=== PATIENT | female | born 1980 | race Caucasian/White ===

== ENCOUNTER 2020-03-13 15:33 | Outpatient (REF) | payer OTHER, SELFPAY ==
[2020-03-13 16:13] LABS: COVID-19 Test Negative (Negative)
== END 2020-03-13 15:34 | disposition home or self-care (01) ==
LOC: HO.LAB 15:33
PROVIDERS: PCP Internal Medicine; Visit Provider Internal Medicine
DX: Z20.828 Contact with and (suspected) exposure to other viral communicable diseases (principal)
CPT/HCPCS: 36415

== ENCOUNTER 2020-06-05 09:34 | Outpatient (REF) | payer OTHER, SELFPAY ==
[2020-06-05 09:54] LABS: COVID-19 Test Negative (Negative)
== END 2020-06-05 09:35 | disposition home or self-care (01) ==
LOC: HO.EMPCOV 09:34
PROVIDERS: PCP Internal Medicine; Visit Provider Internal Medicine
DX: Z20.828 Contact with and (suspected) exposure to other viral communicable diseases (principal)
CPT/HCPCS: 87635; C9803

== ENCOUNTER 2020-06-16 16:37 | Outpatient (REF) | payer OTHER, SELFPAY ==
--- NOTE | 2020-06-16 16:45 | XR_ITS ---
EXAMINATION: XR FOREARM, LEFT CLINICAL INFORMATION: Pain left arm. COMPARISON: None TECHNIQUE: AP and lateral views of the left forearm were obtained. FINDINGS: The bones and soft tissues are normal. No fracture. Imaged portions of the elbow and wrist are unremarkable. XR/XR forearm LT 2V IMPRESSION: Unremarkable left forearm exam.
== END 2020-06-16 16:38 | disposition home or self-care (01) ==
LOC: HO.XRAY 16:37
PROVIDERS: PCP Internal Medicine; Visit Provider Nurse Practitioner Family
DX: M79.602 Pain in left arm (principal)
CPT/HCPCS: 73090

== ENCOUNTER 2020-09-05 09:29 | Outpatient (REF) | payer OTHER, SELFPAY ==
[2020-09-05 09:51] LABS: COVID-19 Test Negative (Negative); IDNOW Serial# 55D5AD1C
== END 2020-09-05 09:30 | disposition home or self-care (01) ==
LOC: HO.EMPCOV 09:29
PROVIDERS: Visit Provider Internal Medicine
DX: Z20.822 Contact with and (suspected) exposure to COVID-19 (principal)
CPT/HCPCS: 36415; 87635; C9803

== ENCOUNTER 2020-09-06 07:28 | Outpatient (REF) | payer OTHER, SELFPAY ==
[2020-09-06 08:45] LABS: MANUAL DIFF FLAG NO
[2020-09-06 08:52] LABS: Basophils Percent Auto 0.4 % (0-2); Eosinophils Absolute Auto 0.1 X10*3/uL (0.0-0.4); Eosinophils Percent Auto 1.3 % (0-4); Hematocrit 42.9 % (37-47); Hemoglobin 14.2 g/dl (12.0-16.0); Imm Gran Abs Auto 0.02 X10*3/uL (0.00-0.03); Imm Gran Pct Auto 0.3 % (0.0-0.4); Lymphocytes Absolute Auto 1.7 X10*3/uL (1.2-4.9); Lymphocytes Percent Auto 25.6 % (20-40); Mean Corpuscular HGB Conc 33.1 g/dl (31.0-35.0); Mean Corpuscular Hemoglobin 30.3 pg (27.0-33.0); Mean Corpuscular Volume 91.7 fL (80-98); Mean Platelet Volume 10.3 fL (9.4-12.3); Monocytes Absolute Auto 0.4 X10*3/uL (0.1-1.2); Monocytes Percent Auto 5.2 % (2-11); Neutrophils Absolute Auto 4.5 X10*3/uL (2.0-8.3); Neutrophils Percent Auto 67.2 % (45-73); Platelet Count 332 X10*3/uL (160-400); Red Blood Count 4.68 X10*6/uL (4.20-5.50); Red Cell Distribution Width 13.6 % (11.0-16.0); White Blood Count 6.8 X10*3/uL (4.8-10.8)
[2020-09-06 09:05] LABS: Anion Gap 13 (12-20); Blood Urea Nitrogen 14 mg/dL (9-16); Calcium 8.7 mg/dL (8.4-10.2); Carbon Dioxide 20 mmol/L (22-29); Chloride 111 mmol/L (96-108); Cholesterol 160 mg/dL; Estimated Glomerular Filt Rate > 60; Glucose Fasting 97 mg/dL (60-99); HDL Cholesterol 41 mg/dL; LDL Cholesterol Calculated 101 mg/dl; Potassium 4.5 mmol/L (3.3-5.1); Rheumatoid Factor < 15.0 IU/mL (<15.0); Sodium 139 mmol/L (135-145); Triglycerides 91 mg/dL
[2020-09-06 09:29] LABS: TSH reflex Free T4 1.75 uIU/mL (0.32-4.0)
== END 2020-09-06 07:29 | disposition home or self-care (01) ==
LOC: HO.LAB 07:28
PROVIDERS: PCP Internal Medicine; Visit Provider Nurse Practitioner Family
DX: M79.602 Pain in left arm (principal); Z83.49 Family history of other endocrine, nutritional and metabolic diseases
CPT/HCPCS: 36415; 80048; 80061; 84443; 85025; 86431

== ENCOUNTER → 2020-10-10 13:57 | Outpatient (BNVA) | payer OTHER, SELFPAY | PROVIDERS: PCP Internal Medicine; Visit Provider Nurse Practitioner Family ==

== ENCOUNTER 2020-10-27 14:18 | Outpatient (REF) | payer OTHER, SELFPAY ==
--- NOTE | ~2020-10-27 | MR_ITS ---
EXAMINATION: MRI LEFT FOREARM CLINICAL INFORMATION: Pain left forearm. Patient reports pain mostly proximal with certain movements. Symptoms since March 2020. No injury. COMPARISON: X-ray left forearm 06/16/2020. TECHNIQUE: Imaging of the left forearm in a high-field magnet without contrast. Large [id number] study. FINDINGS: There is artifactual signal projected over the forearm on the axial T2 short axis sequences. This limits evaluation. BONE/JOINTS: No acute fracture is seen. No evidence of significant edema to suggest stress reaction or bone contusion is identified in the radius or ulna. Limited incomplete evaluation of the imaged portion of the elbow, without abnormal edema identified. MUSCLES/TENDONS: There is mild diffuse intermediate T2 signal in the muscles, which may be artifactual in the provided sequences. No focal muscle tear is seen. Visualized tendons appear intact. No focal fluid collection or discrete mass lesion is identified in this noncontrast study. MR/MR forearm LT wo con IMPRESSION: 1. No evidence of acute osseous abnormality. 2. There is artifactual signal on the axial T2 fat-sat sequence. Mild intermediate T2 signal diffusely in the muscles of the forearm. This may be artifactual in nature. If there is concern for diffuse muscle edema from etiology such as myositis, repeat MRI can be obtained for evaluation. 3. No evidence of muscle tear. Visualized tendons appear intact.
== END 2020-10-27 14:19 | disposition home or self-care (01) ==
LOC: HO.MRI 14:18
PROVIDERS: Visit Provider Internal Medicine
DX: M79.632 Pain in left forearm (principal)
CPT/HCPCS: 73218

== ENCOUNTER 2020-12-15 12:40 | Outpatient (REF) | payer OTHER, SELFPAY ==
[2020-12-15 13:56] LABS: MANUAL DIFF FLAG NO
[2020-12-15 14:08] LABS: Basophils Percent Auto 0.3 % (0-2); Eosinophils Absolute Auto 0.1 X10*3/uL (0.0-0.4); Eosinophils Percent Auto 1.2 % (0-4); Hematocrit 43.7 % (37-47); Hemoglobin 14.6 g/dl (12.0-16.0); Imm Gran Abs Auto 0.02 X10*3/uL (0.00-0.03); Imm Gran Pct Auto 0.3 % (0.0-0.4); Mean Corpuscular HGB Conc 33.4 g/dl (31.0-35.0); Mean Corpuscular Hemoglobin 30.4 pg (27.0-33.0); Mean Corpuscular Volume 90.9 fL (80-98); Mean Platelet Volume 10.1 fL (9.4-12.3); Monocytes Absolute Auto 0.3 X10*3/uL (0.1-1.2); Monocytes Percent Auto 4.7 % (2-11); Neutrophils Absolute Auto 4.4 X10*3/uL (2.0-8.3); Neutrophils Percent Auto 64.5 % (45-73); Platelet Count 312 X10*3/uL (160-400); Red Blood Count 4.81 X10*6/uL (4.20-5.50); Red Cell Distribution Width 13.2 % (11.0-16.0); White Blood Count 6.8 X10*3/uL (4.8-10.8)
[2020-12-15 14:24] LABS: Alanine Aminotransferase 17 U/L (0-31); Albumin Level 4.6 g/dL (3.5-5.0); Alkaline Phosphatase 50 U/L (39-117); Anion Gap 15 (12-20); Aspartate Amino Transferase 17 U/L (5-31); Bilirubin Total 0.9 mg/dL (0.0-1.0); Blood Urea Nitrogen 14 mg/dL (9-16); C Reactive Protein 0.19 mg/dL (< or = 0.50); Calcium 9.5 mg/dL (8.4-10.2); Carbon Dioxide 19 mmol/L (22-29); Chloride 109 mmol/L (96-108); Estimated Glomerular Filt Rate > 60; Glucose Random 85 mg/dL (60-115); Lactate Dehydrogenase 127 U/L (122-220); Potassium 4.1 mmol/L (3.3-5.1); Sodium 139 mmol/L (135-145); Total Protein 7.5 g/dL (6.5-8.0)
[2020-12-15 15:13] LABS: Erythrocyte Sedimentation Rate 8 MM/HR (0-20)
[2020-12-18 14:51] LABS: Anti Nuclear Antibody Pattern Nuclear, Speckled; Anti Nuclear Antibody Screen POSITIVE (NEGATIVE); Anti Nuclear Antibody Titer 1:40 titer
[2020-12-19 22:47] LABS: Aldolase 4.7 U/L (<=8.1)
[2020-12-24 23:31] LABS: EJ Autoantibodies NOT DETECTED (NOT DETECTED); JO-1 Antibody <1.0 NEG AI (<1.0 NEG); MI 2 Autoantibodies NOT DETECTED (NOT DETECTED); OJ Autoantibodies NOT DETECTED (NOT DETECTED); PL 12 Autoantibodies NOT DETECTED (NOT DETECTED); PL 7 Autoantibodies NOT DETECTED (NOT DETECTED)
== END 2020-12-15 12:41 | disposition home or self-care (01) ==
LOC: HO.LAB 12:40
PROVIDERS: PCP Internal Medicine; Visit Provider Student in an Organized Health Care Education/Training Program
DX: M79.632 Pain in left forearm (principal)
CPT/HCPCS: 36415; 80053; 82085; 82550; 83615; 85025; 85652; 86038; 86039; 86140

== ENCOUNTER 2020-12-27 16:35 | Outpatient (REF) | payer OTHER, SELFPAY ==
--- NOTE | ~2020-12-27 | MR_ITS ---
EXAMINATION: MR FOREARM LEFT WITHOUT AND WITH CONTRAST CLINICAL INFORMATION: Left forearm pain and tingling. COMPARISON: Left forearm MRI dated 10/27/2020 and left forearm radiograph dated 06/16/2020. TECHNIQUE: Multisequence MR imaging of the left forearm was obtained before and after the administration of 8 mL Gadavist IV contrast on a high-field strength scanner. FINDINGS: BONE: No evidence of acute osseous injury. No abnormal marrow signal or enhancement. MUSCLES/TENDONS: The visualized muscles and tendons are intact. No muscle edema or measurable defect. LIGAMENTS: The intra-articular ligaments are poorly evaluated on large [id number]-[id number] images. SOFT TISSUES: No abnormal soft tissue mass or fluid collection. No abnormal soft tissue enhancement. MR/MR forearm LT wo/w con IMPRESSION: Unremarkable examination.
== END 2020-12-27 16:36 | disposition home or self-care (01) ==
LOC: HO.MRI 16:35
PROVIDERS: Visit Provider Student in an Organized Health Care Education/Training Program
DX: M79.632 Pain in left forearm (principal)
CPT/HCPCS: 73220

== ENCOUNTER → 2021-01-03 10:41 | Outpatient (BNVA) | payer OTHER, SELFPAY | PROVIDERS: PCP Internal Medicine; Visit Provider Student in an Organized Health Care Education/Training Program ==

== ENCOUNTER 2021-01-25 12:56 | Outpatient (REF) | payer OTHER, SELFPAY ==
--- NOTE | ~2021-01-25 | US_ITS ---
EXAMINATION: US VENOUS WITH DOPPLER UPPER EXTREMITY, LEFT CLINICAL INFORMATION: Pain left forearm. COMPARISON: None TECHNIQUE: Ultrasound of the upper extremity is performed using compression sonography and color and pulse Doppler flow with assessment of augmentation of flow. There is also imaging and Doppler assessment of the jugular and subclavian veins. Spectral analysis with color-flow imaging is performed. FINDINGS: Respiratory variation, normal compression, and augmented flow are noted throughout the upper extremity including the axillary, brachial, cubital, and radial and ulnar veins. There is normal flow in the internal jugular and subclavian veins. There is no visible deep or superficial thrombophlebitis. If the patient's symptoms progress, a followup ultrasound in 5 -7 days might be of value to exclude proximal propagation from a nonvisualized distal arm vein. US/US venous duplex UE LT IMPRESSION: No DVT demonstrated in the left upper extremity.
== END 2021-01-25 12:57 | disposition home or self-care (01) ==
LOC: HO.US 12:56
PROVIDERS: PCP Internal Medicine; Visit Provider Anesthesiology
DX: M79.632 Pain in left forearm (principal); M79.89 Other specified soft tissue disorders; R23.8 Other skin changes
CPT/HCPCS: 93971

== ENCOUNTER 2021-02-05 08:14 | Outpatient (REF) | payer OTHER, SELFPAY ==
[2021-02-07 13:30] LABS: HPV mRNA E6/E7 rflx Not Detected (Not Detected)
== END 2021-02-05 08:15 | disposition home or self-care (01) ==
LOC: HO.LAB 08:14
PROVIDERS: PCP Internal Medicine; Visit Provider Advanced Practice Midwife
DX: Z01.419 Encounter for gynecological examination (general) (routine) without abnormal findings (principal); Z11.51 Encounter for screening for human papillomavirus (HPV)
CPT/HCPCS: 87624; 88142

== ENCOUNTER 2021-07-30 10:04 | Outpatient (REF) | payer OTHER, SELFPAY ==
--- NOTE | ~2021-07-30 | MM_ITS ---
EXAMINATION: MM SCREENING DIGITAL BREAST TOMOSYNTHESIS, BILATERAL CLINICAL INFORMATION: Screening. Asymptomatic. Age 41. No prior breast imaging. No known family history breast cancer. The lifetime risk of breast cancer based on the Tyrer-Cuzick Model is 9%. COMPARISON: None (current study represents initial baseline exam). TECHNIQUE: Digital breast tomosynthesis is performed in both the craniocaudal and mediolateral oblique views along with computer-aided detection (CAD). Synthesized 2D images are generated from the tomosynthesis. FINDINGS: There are scattered areas of fibroglandular density (ACR BI-RADS breast composition Category b). There are no significant masses, abnormal calcifications, or other abnormalities. Breast tissue composition borders on predominantly fatty. The axilla and skin contours are unremarkable. MM/MM tomosynthesis screening BI IMPRESSION: No mammographic evidence of malignancy. ASSESSMENT: BI-RADS 1: Negative RECOMMENDATION: Routine annual mammography screening. This patient's information was entered into a reminder system with a target due date for their next mammogram.
== END 2021-07-30 10:05 | disposition home or self-care (01) ==
LOC: HO.MAMMO 10:04
PROVIDERS: PCP Internal Medicine; Visit Provider Internal Medicine
DX: Z12.31 Encounter for screening mammogram for malignant neoplasm of breast (principal)
CPT/HCPCS: 77063; 77067

== ENCOUNTER 2021-11-14 11:42 | Outpatient (REF) | payer OTHER, SELFPAY ==
--- NOTE | ~2021-11-14 | XR_ITS ---
EXAMINATION: XR CHEST CLINICAL INFORMATION: Cough for 3 days. COMPARISON: Chest done on 07/14/2018. TECHNIQUE: 2 views of the chest were obtained. FINDINGS: No significant abnormality is noted involving the heart, lungs, mediastinum, bony thorax or soft tissues. XR/XR chest 2V IMPRESSION: Unremarkable examination. No significant change.
[2021-11-14 14:24] LABS: Influenza A PCR NEGATIVE (Negative); Influenza B PCR NEGATIVE (Negative); Resp Syncy Virus RNA Qual PCR NEGATIVE (Negative); SARS COV2 PCR INHOUSE POSITIVE (Negative)
== END 2021-11-14 11:43 | disposition home or self-care (01) ==
LOC: HO.XRAY 11:42
PROVIDERS: PCP Internal Medicine; Visit Provider Physician Assistant
DX: Z20.822 Contact with and (suspected) exposure to COVID-19 (principal); J40 Bronchitis, not specified as acute or chronic; J06.9 Acute upper respiratory infection, unspecified
CPT/HCPCS: 0241U; 71046; 87071

== ENCOUNTER 2022-02-18 15:39 | Outpatient (REF) | payer OTHER, SELFPAY ==
[2022-02-22 03:51] LABS: HPV mRNA E6/E7 rflx Not Detected (Not Detected)
== END 2022-02-18 15:40 | disposition home or self-care (01) ==
LOC: HO.LNP 15:39
PROVIDERS: Visit Provider Advanced Practice Midwife
DX: Z01.419 Encounter for gynecological examination (general) (routine) without abnormal findings (principal); Z11.51 Encounter for screening for human papillomavirus (HPV); Z98.890 Other specified postprocedural states
CPT/HCPCS: 87624; 88142

== ENCOUNTER 2022-02-18 15:51 | Outpatient (REF) | payer OTHER, SELFPAY ==
[2022-02-19 04:34] LABS: HBsAGNum1 0.23 S/CO (0.00-0.99); HIV AB/AG Nonreactive (Nonreactive); HIV Num 1 0.06 S/CO (0.00-0.99); Hepatitis B Surface Antigen Negative (Negative); ~HepC Num1 0.05 S/CO (0.00-0.79); ~Hepatitis C Antibody Nonreactive (Nonreactive)
[2022-02-19 05:10] LABS: CT PCR NOT DETECTED (Not Detect.)
[2022-02-19 05:11] LABS: NG PCR NOT DETECTED (Not Detect.)
[2022-02-19 13:20] LABS: BV Int Neg Control Negative (Negative); BV Int Pos Control Positive (Positive)
[2022-02-20 05:38] LABS: Syphilis Screen Nonreactive (Nonreactive)
== END 2022-02-18 15:52 | disposition home or self-care (01) ==
LOC: HO.LAB 15:51
PROVIDERS: PCP Internal Medicine; Visit Provider Advanced Practice Midwife
DX: Z11.3 Encounter for screening for infections with a predominantly sexual mode of transmission (principal); Z11.4 Encounter for screening for human immunodeficiency virus [HIV]; Z98.890 Other specified postprocedural states
CPT/HCPCS: 86780; 86803; 87340; 87389; 87480; 87491; 87510; 87591; 87660

== ENCOUNTER 2022-04-02 06:16 | Outpatient (REF) | payer OTHER, SELFPAY ==
--- NOTE | ~2022-04-02 | FL_ITS ---
EXAMINATION: XR FLUOROSCOPY WITH IMAGES CLINICAL INFORMATION: Spondylosis without myelopathy or radiculopathy, lumbar region. COMPARISON: 04/06/2019. TECHNIQUE: Fluoroscopy performed by Dr. Raymundo Phillips. Fluoroscopy time: 0.4 minutes. Cumulative Dose: 15.5 mGy. DAP: 4.24 Gy-cm2. Images: 7. FINDINGS: Imaging demonstrates neural foraminal injection performed bilaterally L3-L5. FL/FL guidance in treatment room IMPRESSION: Intraoperative fluoroscopy for pain management procedure.
== END 2022-04-02 06:17 | disposition home or self-care (01) ==
LOC: CF 06:16
PROVIDERS: Visit Provider Anesthesiology
DX: Z13.89 Encounter for screening for other disorder (principal)

== ENCOUNTER 2022-08-06 11:11 | Outpatient (REF) | payer OTHER, SELFPAY ==
--- NOTE | ~2022-08-06 | MM_ITS ---
EXAMINATION: MM SCREENING DIGITAL BREAST TOMOSYNTHESIS, BILATERAL CLINICAL INFORMATION: Screening. Asymptomatic. The lifetime risk of breast cancer based on the Tyrer-Cuzick Model is 8.3%. COMPARISON: Mammography: July 30, 2021 TECHNIQUE: Digital breast tomosynthesis is performed in both the craniocaudal and mediolateral oblique views along with computer-aided detection (CAD). Synthesized 2D images are generated from the tomosynthesis. FINDINGS: There are scattered areas of fibroglandular density (ACR BI-RADS breast composition Category b). There are no significant masses, abnormal calcifications, or other abnormalities. MM/MM tomosynthesis screening BI IMPRESSION: No significant changes from prior exam. ASSESSMENT: BI-RADS 1: Negative RECOMMENDATION: Routine annual mammography screening. This patient's information was entered into a reminder system with a target due date for their next mammogram.
== END 2022-08-06 11:12 | disposition home or self-care (01) ==
LOC: HO.MAMMO 11:11
PROVIDERS: Visit Provider Internal Medicine
DX: Z12.31 Encounter for screening mammogram for malignant neoplasm of breast (principal)
CPT/HCPCS: 77063; 77067

== ENCOUNTER 2022-08-27 12:03 | Outpatient (REF) | payer OTHER, SELFPAY ==
--- NOTE | ~2022-08-27 | XR_ITS ---
EXAMINATION: XR CHEST CLINICAL INFORMATION: Cough. COMPARISON: Chest 11/14/2021. TECHNIQUE: 2 views of the chest were obtained. FINDINGS: No significant abnormality is noted involving the heart, lungs, mediastinum, bony thorax or soft tissues. XR/XR chest 2V IMPRESSION: Unremarkable chest examination.
== END 2022-08-27 12:04 | disposition home or self-care (01) ==
LOC: HO.XRAY 12:03
PROVIDERS: PCP Internal Medicine; Visit Provider Surgery
DX: R05.9 Cough, unspecified (principal)
CPT/HCPCS: 71046

== ENCOUNTER 2023-01-01 08:13 | Outpatient (REF) | payer OTHER, SELFPAY ==
[2023-01-01 08:34] LABS: MANUAL DIFF FLAG NO
[2023-01-01 10:17] LABS: Basophils Percent Auto 0.4 % (0-2); Eosinophils Absolute Auto 0.1 X10*3/uL (0.0-0.4); Eosinophils Percent Auto 1.8 % (0-4); Hematocrit 42.2 % (37.0-47.0); Hemoglobin 13.7 g/dl (12.0-16.0); Imm Gran Abs Auto 0.01 X10*3/uL (0.00-0.03); Imm Gran Pct Auto 0.2 % (0.0-0.4); Lymphocytes Absolute Auto 1.7 X10*3/uL (1.2-4.9); Mean Corpuscular HGB Conc 32.5 g/dl (31.0-35.0); Mean Corpuscular Volume 89.4 fL (80.0-98.0); Mean Platelet Volume 10.1 fL (9.4-12.3); Monocytes Absolute Auto 0.3 X10*3/uL (0.1-1.2); Monocytes Percent Auto 6.1 % (2-11); Neutrophils Percent Auto 58.5 % (45-73); Platelet Count 337 X10*3/uL (160-400); Red Blood Count 4.72 X10*6/uL (4.20-5.50); Red Cell Distribution Width 14.1 % (11.0-16.0); White Blood Count 5.1 X10*3/uL (4.8-10.8)
[2023-01-01 11:26] LABS: Alanine Aminotransferase 16 U/L (0-31); Albumin Level 4.2 g/dL (3.5-5.0); Alkaline Phosphatase 55 U/L (39-117); Anion Gap 11 (12-20); Aspartate Amino Transferase 15 U/L (5-31); Bilirubin Total 0.9 mg/dL (0.0-1.0); Blood Urea Nitrogen 12 mg/dL (9-16); Carbon Dioxide 25 mmol/L (22-29); Chloride 110 mmol/L (96-108); Estimated Glomerular Filt Rate > 60; Glucose Fasting 83 mg/dL (60-99); Potassium 4.1 mmol/L (3.3-5.1); Sodium 142 mmol/L (135-145); Total Protein 7.3 g/dL (6.5-8.0)
== END 2023-01-01 08:14 | disposition home or self-care (01) ==
LOC: HO.LAB 08:13
PROVIDERS: PCP Internal Medicine; Visit Provider Internal Medicine
DX: M79.2 Neuralgia and neuritis, unspecified (principal); D64.9 Anemia, unspecified
CPT/HCPCS: 36415; 80053; 85025

== ENCOUNTER 2023-02-25 14:15 | Outpatient (AMB) | payer OTHER, SELFPAY ==
--- NOTE | 2023-02-25 14:16 | MHC.PC.OV ---
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 Patient of Dr. Haddad presents today for same-day visit for sore throat, right side x 3 days. denies fevers, chills, denies cough. Denies nasal congestion. kids have stuffy noses. Rapid strep in office negative. Offered to swab patient for COVID however patient declined at this time as she just has symptoms of a sore throat no fever, cough, chills, loss of taste or smell. [facility] Medical History Arm pain, left Family history of thyroid disease in maternal grandfather Hx LEEP (loop electrosurgical excision procedure), cervix, (~06/2012) Migraine Neuropathic pain of left forearm Surgical History History of salpingectomy (~2013) History of 2 sections Family History Father Hypertension Mother Thyroid disease Maternal Grandmother Hypertension Diabetes mellitus Maternal Aunt Hypertension Family/Other Mental health disorder Social History Housing: House Alcohol intake: current Alcohol intake frequency: holidays/special occasions only Alcohol type: beer Patient Tobacco Use Status: Never used Tobacco e-Cigarette/Vaping Use: Never Used Second Hand Smoke Exposure: No service: No Current occupational status: employed Current occupation: [employer] Cognitive needs: No Hearing needs: No Vision needs: Yes Female Reproductive History Menstrual Age of Menarche: 12 Questionnaire Thrive Questionnaire Date Thrive assessed: 08/27/22 BREE-7 AMB Questionnaire BREE-7 Date BREE - 7 assessed: 11/14/21 Source: Developed by Drs. Miguel Santiago, Florence Rodriguez, Praveen Faust and colleagues, with an educational ghislaine from [employer]. Review of Systems Const Denies chills, Denies fatigue, Denies fever(s) and Denies poor appetite Eyes Denies no additional complaints ENT Reports Normal hearing present, Denies otalgia, Denies post nasal drip, Denies sinus pressure and Reports sore throat Card Denies chest pain, Denies syncope, Denies rapid heart rate and Denies dyspnea Resp Denies cough and Denies dyspnea GI Denies change in stool character, Denies constipation, Denies diarrhea, Denies nausea and Denies vomiting Denies urinary frequency, Denies dysuria and Denies urinary urgency Neuro Reports Normal hearing present, Denies confusion and Denies syncope Psych Denies confusion Endo Denies fatigue Physical exam (Primary Care) Vital Signs: Last Vital Signs Pulse 70 02/25/23 14:17 BP 122/82 02/25/23 14:17 Pulse Ox 97 02/25/23 14:17 Oxygen Delivery Method Room Air 02/25/23 14:17 BMI result Body Mass Index 28.7 Tobacco/Smoking Status: Tobacco use Status Tobacco use date assessed 02/25/23 02/25/23 14:28 Patient Tobacco Use Status Never used Tobacco 02/25/23 14:28 Tobacco use type 02/25/23 11:26 e-Cigarette/Vaping Use Never Used 02/25/23 14:28 Thrive Assessment: Date of Thrive Assessment Date Thrive assessed 08/27/22 02/25/23 14:28 Const General: No confusion Orientation/consciousness: No confusion HENMT Head: Yes normocephalic and Yes atraumatic Mouth: Normal oral and palatal mucosa present Throat: Yes tonsils normal, Yes uvula midline and Yes posterior oropharynx abnormal (mild erythema, no exudate ) Eyes Conjunctivae: conjunctivae normal Chest Chest palpation & inspection: normal inspection of the chest Resp Effort & Inspection: normal respiratory effort Auscultation: clear to auscultation bilaterally, no crackles, no rhonchi and no wheezes Cardio Rate: regular rate Rhythm: regular rhythm Heart sounds: S1 normal heart sound present and S2 normal heart sound present GI Inspection: Yes normal to inspection Neuro General: No confusion Cranial nerves: Yes Normal hearing present Extrem General: No edema Results AMB Rapid Strep AMB Rapid Strep Negative Last Edit by LINSEY German on 02/25/23 14:31 Results Reviewed Results Reviewed: Laboratory Last Values Strep Scn Rapid Clinic Negative 02/25/23 14:16 Assessment and Plan Assessment & Plan (1) Pharyngitis: Code(s): J02.9 - Acute pharyngitis, unspecified Qualifiers: Pharyngitis/tonsillitis etiology: other specified organisms Qualified Code(s): J02.8 - Acute pharyngitis due to other specified organisms Plan: Rapid strep in office negative, symptoms likely consistent with a viral pharyngitis patient advised to take [id number] ibuprofen as needed for pain and inflammation and can swish with warm salt water to soothe throat. Patient advised if she develops any fever, chills, cough with to follow-up for COVID swab. Orders: Orders AMB Rapid Strep Screen Today Z13.9 - Encounter for screening, unspecified Medications: Refilled cyclobenzaprine 5 mg PO BEDTIME 90 days 90 tabs 0RF Patient Instructions: Patient states she will call to set up follow-up with PCP. Coding Level of Care Code Est Pt Level 3 (89520) Diagnoses Pharyngitis due to other organism J02.8 Pharyngitis/tonsillitis etiology: other specified organisms
[2023-02-25 14:17] VITALS: BP 122/82; PULSE 70; O2SAT 97; BMI 28.7
== END 2023-02-25 14:45 | disposition home or self-care (01) ==
PROVIDERS: PCP Internal Medicine; Visit Provider Nurse Practitioner Family
DX: J02.8 Acute pharyngitis due to other specified organisms (principal); J02.9 Acute pharyngitis, unspecified
CPT/HCPCS: 87880; 99213

== ENCOUNTER 2023-06-10 12:40 | Outpatient (REF) | payer OTHER, SELFPAY ==
[2023-06-10 14:14] LABS: Influenza A PCR NEGATIVE (Negative); Influenza B PCR NEGATIVE (Negative); Resp Syncy Virus RNA Qual PCR NEGATIVE (Negative); SARS COV2 PCR INHOUSE NEGATIVE (Negative)
== END 2023-06-10 12:41 | disposition home or self-care (01) ==
LOC: HO.LAB 12:40
PROVIDERS: PCP Internal Medicine; Visit Provider Internal Medicine
DX: Z11.52 Encounter for screening for COVID-19 (principal); Z20.822 Contact with and (suspected) exposure to COVID-19; R09.89 Other specified symptoms and signs involving the circulatory and respiratory systems
CPT/HCPCS: 0241U

== ENCOUNTER 2023-09-04 16:05 | Outpatient (REF) | payer OTHER, SELFPAY | END 2023-09-04 16:06 | disposition home or self-care (01) | LOC: HO.MAMMO 16:05 | PROVIDERS: PCP Internal Medicine; Visit Provider Internal Medicine | DX: Z12.31 Encounter for screening mammogram for malignant neoplasm of breast (principal) | CPT/HCPCS: 77063; 77067 ==

== ENCOUNTER → 2023-09-04 16:15 | Outpatient (BNV) | payer OTHER, SELFPAY | PROVIDERS: PCP Internal Medicine; Visit Provider Radiology Diagnostic Radiology | DX: Z12.31 Encounter for screening mammogram for malignant neoplasm of breast (principal) | CPT/HCPCS: 77063; 77067 ==

== ENCOUNTER 2023-09-18 13:01 | Outpatient (AMB) | payer OTHER, SELFPAY ==
--- NOTE | 2023-09-18 13:03 | MHC.OFFVIS ---
Intake Vital Signs 09/18/23 13:07 Height 5 ft 4 in Weight 169 lb 8 oz BMI 29.1 BP 122/63 Blood Pressure Location Lt brachial Position Sitting Respiration 16 Pulse 67 Pulse Source Pulse Oximeter Pulse Oximetry (%) 100 Oxygen Delivery Method Room Air Intake Visit Reasons: LUPE 04/04/22 chronic back pain Intake Note: Patient comes in for chronic back pain. Reports pain 0/10. Allergies No Known Allergies Allergy (Verified 09/18/23 13:06) HPI HPI Comments History of Present Illness Details Kayy is back in my office after prolonged period of absence. I last time I see her she reported good results of diagnostic bilateral medial branch block with ropivacaine. I was planning to do sprint PNS for her. The patient lost for the follow-up. Now she is in the office requesting the continuation of care. She is employee of [employer] [place] Initially I was intended to offer her sprint PNS as it was planned 2 years ago however patient started to complain to me that most of her pain is while she is sitting. The pain is being exacerbated with attempt of heavy lifting and activities. I suspected that the patient has -vertebra genic pain syndrome . Instead of sending her for the sprint PNS I offered her to go for MRI of the lumbar spine and then we will evaluate the MRI. If there is no Modic type changes on the MRI we will with can come back to the idea of the sprint PNS. However if there are MRI changes I think I am obligated to offer her Intrasept procedure. Prior very pleasant 41 years old female who presents in my office after 2 years and half of absence.? She have seen nurse practitioner this office few months ago with unrelated problem that was pain in her distal forearm.? Now she does not complain on the forearm pain.? She came today to discuss pain in the lower back.? 2.? And half years ago I performed diagnostic medial branch block L3-L4 dorsal ramus L5.? She reported that this block gave her 2 and half years of pain relief.? Now the pain is coming back and she wants to repeat this block again.? In the past she was injected with epidural steroid injection by Dr. Ponce.? It was good pain relief for prolonged period of time which relieved pain radiating to the leg.? However the axial pain remained after the injection [facility] Medical History Arm pain, left Family history of thyroid disease in maternal grandfather Hx LEEP (loop electrosurgical excision procedure), cervix, (~06/2012) Migraine Neuropathic pain of left forearm Surgical History History of salpingectomy (~2013) History of 2 sections Family History Father Hypertension Mother Thyroid disease Maternal Grandmother Hypertension Diabetes mellitus Maternal Aunt Hypertension Family/Other Mental health disorder Social History Housing: House Alcohol intake: current Alcohol intake frequency: holidays/special occasions only Alcohol type: beer Patient Tobacco Use Status: Never used Tobacco e-Cigarette/Vaping Use: Never Used Second Hand Smoke Exposure: No service: No Current occupational status: employed Current occupation: [employer] Cognitive needs: No Hearing needs: No Vision needs: Yes Female Reproductive History Menstrual Age of Menarche: 12 Review of Systems Const All systems reviewed & are unremarkable except as noted in HPI and below ENT Denies Normal hearing present Neuro Denies Normal hearing present, Denies Abnormal speech present and Denies confusion Psych Denies confusion Physical Exam Vital Signs: Last Vital Signs Pulse 67 09/18/23 13:07 Resp 16 09/18/23 13:07 BP 122/63 09/18/23 13:07 Pulse Ox 100 09/18/23 13:07 Oxygen Delivery Method Room Air 09/18/23 13:07 BMI result Body Mass Index 29.1 Const General: cooperative, healthy appearing, comfortable, no acute distress and alert; No confusion Orientation/consciousness: patient oriented x3 and No confusion Limitations: no limitations HEENT Head: Yes normocephalic and Yes atraumatic Ears: hearing grossly normal bilaterally Eyes General: appearance normal, both eyes and all related structures Eyelids: Yes eyelids normal Pupils: Equal, round and reactive pupils present EOM: EOMs intact bilaterally Neck Neck: Yes normal visual inspection and Yes no JVD Resp Effort & Inspection: normal respiratory effort, able to speak in complete sentences and no audible wheezes Cardio Jugular venous distension: no JVD Back/Spine/Pelvis Other: Flexing forward aggravates pain more than flexing backwards. Loading test is negative. Patient reports pain with prolonged sitting, pain with prolonged flat in bed position. Neuro General: patient oriented x3 and No confusion Cranial nerves: Yes Equal, round and reactive pupils present and No Normal hearing present Speech: No Abnormal speech present Extrem Other: no pain with pronation of LUE against resistance. 2+ radial pulses. DTRs symmetrical. Cervical ROM normal. Left upper extremity: normal capillary refill and elbow/forearm (5/5 motor strength of LUE) Details: normal to inspection, tenderness, abnormal ROM Details: pain with active ROM and distal pulses intact; no swelling and no unusual warmth Psych Appearance: grossly normal Mental Status: mental status grossly normal Speech and movement: Normal speech and movement present Affect: normal affect Attitude: cooperative Thought process: Normal thought process present Thought content: Normal thought content present Insight: Good insight present (Psych) Judgement: Good judgement present (Psych) Assessment & Plan Assessment & Plan (1) Spondylosis of lumbar region without myelopathy or radiculopathy: Code(s): M47.816 - Spondylosis without myelopathy or radiculopathy, lumbar region (2) Vertebrogenic low back pain: Code(s): M54.51 - Vertebrogenic low back pain (3) Chronic pain syndrome: Code(s): G89.4 - Chronic pain syndrome Plan Initially I offered this patient to perform sprint PNS bilateral L5 position however after continuous examination the decision was made to send patient for MRI of the lumbar spine to evaluate for the presence of vertebrogenic pain syndrome. I will see this patient after MRI of the lumbar spine. Orders: Orders MR lumbar spine wo con 09/18/23 G89.4 - Chronic pain syndrome, M47.816 - Spondylosis without myelopathy or radiculopathy, lumbar region, M54.51 - Vertebrogenic low back pain Patient Instructions: I here by testify that I spent 37 minutes in conversation with this patient as well as planning her care and organizing this note. Coding Level of Care Code Est Pt Level 4 (71220) Diagnoses Spondylosis of lumbar region without myelopathy or radiculopathy M47.816 Vertebrogenic low back pain M54.51 Chronic pain syndrome G89.4
[2023-09-18 13:07] VITALS: BP 122/63; PULSE 67; RESP 16; O2SAT 100; BMI 29.1
== END 2023-09-18 13:31 | disposition home or self-care (01) ==
PROVIDERS: PCP Internal Medicine; Visit Provider Anesthesiology
DX: M47.816 Spondylosis without myelopathy or radiculopathy, lumbar region (principal); M54.51 Vertebrogenic low back pain; G89.4 Chronic pain syndrome
CPT/HCPCS: 99214

== ENCOUNTER → 2023-09-18 13:01 | Outpatient (BNVA) | payer OTHER, SELFPAY | PROVIDERS: PCP Internal Medicine; Visit Provider Anesthesiology ==

== ENCOUNTER 2023-09-24 17:19 | Outpatient (REF) | payer OTHER, SELFPAY ==
--- NOTE | ~2023-09-24 | MR_ITS ---
EXAMINATION: MR LUMBAR SPINE WITHOUT CONTRAST CLINICAL INFORMATION: Lumbar spondylosis COMPARISON: MRI of lumbar spine on 12/03/2017 TECHNIQUE: MRI of the lumbar spine was obtained using routine sequences without contrast. FINDINGS: The visualized lumbar vertebrae are intact with normal alignment. No focal bone lesion with abnormal signal can be seen. Evaluation of the intervertebral discs show: T12/L1: Intervertebral disc height is normal, with normal T2 signal. No focal disc herniation is seen. Bilateral T12/L1 neuroforamina are patent. Bilateral apophyseal joints are intact with normal alignment. L-1/L-2: Intervertebral disc height is normal, with normal T2 signal. No focal disc herniation is seen. Bilateral L1-L2 neuroforamina are patent. Bilateral apophyseal joints are intact with normal alignment. L2/L3: Intervertebral disc height is normal, with mild loss of T2 signal. No focal disc herniation is seen. Bilateral L2-L3 neuroforamina are patent. Bilateral apophyseal joints are intact with normal alignment. L3/L4: Intervertebral disc height is normal, with normal T2 signal. Mild left foraminal disc protrusion is seen. Bilateral L3-L4 neuroforamina are patent. Bilateral apophyseal joints are intact with normal alignment. L4/L5: Intervertebral disc height is mildly decreased, with normal T2 signal. No focal disc herniation is seen. Bilateral L4-L5 neuroforamina are patent. Bilateral apophyseal joints are intact with normal alignment. L5/S1: Intervertebral disc height is normal, with normal T2 signal. No focal disc herniation is seen. Bilateral L5-S1 neuroforamina are patent. Bilateral apophyseal joints are intact with normal alignment. Conus medullaris is seen normally at L1 level. MR/MR lumbar spine wo con IMPRESSION: 1. Unchanged Mild left foraminal disc protrusion causing mild left L3-L4 neural foraminal stenosis. 2. Unchanged Mild degenerative disc disease at L2-L3 and L4-L5. 3. No evidence of spinal canal stenosis.
== END 2023-09-24 17:20 | disposition home or self-care (01) ==
LOC: HO.MRI 17:19
PROVIDERS: PCP Internal Medicine; Visit Provider Anesthesiology
DX: M47.816 Spondylosis without myelopathy or radiculopathy, lumbar region (principal); M54.51 Vertebrogenic low back pain; G89.4 Chronic pain syndrome
CPT/HCPCS: 72148

== ENCOUNTER 2023-10-15 08:43 | Outpatient (AMB) | payer OTHER, SELFPAY ==
--- NOTE | 2023-10-15 08:47 | MHC.OFFVIS ---
Vital Signs 10/15/23 08:51 Height 5 ft 4 in Weight 169 lb BMI 29.0 BP 122/62 Blood Pressure Location Lt brachial Position Sitting Respiration 16 Pulse 70 Pulse Source Pulse Oximeter Pulse Oximetry (%) 98 Oxygen Delivery Method Room Air Intake Visit Reasons: Discuss MRI Results Intake Note: Patient comes in to discuss MRI results. Reports pain 09/16. Allergies No Known Allergies Allergy (Verified 10/15/23 08:47) HPI Comments Details: Kayy is back in my office after MRI which was performed on 09/24/2023. Despite my expectations the MRI did not demonstrate any endplate changes, no Modic type changes in the vertebras. In fact the MRI is completely normal not even demonstration of the facet joint arthropathy. The full MRI dictation is as below and it has a tiny little disc protrusion at L3-L4 which does not affect anything for this patient. I offered the patient as we did last time diagnostic medial branch block and after that sprint PNS. Prior very pleasant 41 years old female who presents in my office after 2 years and half of absence.? She have seen nurse practitioner this office few months ago with unrelated problem that was pain in her distal forearm.? Now she does not complain on the forearm pain.? She came today to discuss pain in the lower back.? 2.? And half years ago I performed diagnostic medial branch block L3-L4 dorsal ramus L5.? She reported that this block gave her 2 and half years of pain relief.? Now the pain is coming back and she wants to repeat this block again.? In the past she was injected with epidural steroid injection by Dr. Ponce.? It was good pain relief for prolonged period of time which relieved pain radiating to the leg.? However the axial pain remained after the injection [facility] Medical History Arm pain, left Family history of thyroid disease in maternal grandfather Hx LEEP (loop electrosurgical excision procedure), cervix, (~06/2012) Migraine Neuropathic pain of left forearm Surgical History History of salpingectomy (~2013) History of 2 sections Family History Father Hypertension Mother Thyroid disease Maternal Grandmother Hypertension Diabetes mellitus Maternal Aunt Hypertension Family/Other Mental health disorder Social History Housing: House Alcohol intake: current Alcohol intake frequency: holidays/special occasions only Alcohol type: beer Patient Tobacco Use Status: Never used Tobacco e-Cigarette/Vaping Use: Never Used Second Hand Smoke Exposure: No service: No Current occupational status: employed 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 Cognitive needs: No Hearing needs: No Vision needs: Yes Female Reproductive History Menstrual Age of Menarche: 12 Review of Systems Const All systems reviewed & are unremarkable except as noted in HPI and below ENT Denies Normal hearing present Neuro Denies Normal hearing present, Denies Abnormal speech present and Denies confusion Psych Denies confusion Physical Exam Vital Signs: Last Vital Signs Pulse 70 10/15/23 08:51 Resp 16 10/15/23 08:51 BP 122/62 10/15/23 08:51 Pulse Ox 98 10/15/23 08:51 Oxygen Delivery Method Room Air 10/15/23 08:51 BMI result Body Mass Index 29.0 Const General: cooperative, healthy appearing, comfortable, no acute distress and alert; No confusion Orientation/consciousness: patient oriented x3 and No confusion Limitations: no limitations HEENT Head: Yes normocephalic and Yes atraumatic Ears: hearing grossly normal bilaterally Eyes General: appearance normal, both eyes and all related structures Eyelids: Yes eyelids normal Pupils: Equal, round and reactive pupils present EOM: EOMs intact bilaterally Neck Neck: Yes normal visual inspection and Yes no JVD Resp Effort & Inspection: normal respiratory effort, able to speak in complete sentences and no audible wheezes Cardio Jugular venous distension: no JVD Back/Spine/Pelvis Other: Flexing forward aggravates pain more than flexing backwards. Loading test is negative. Patient reports pain with prolonged sitting, pain with prolonged flat in bed position. Neuro General: patient oriented x3 and No confusion Cranial nerves: Yes Equal, round and reactive pupils present and No Normal hearing present Speech: No Abnormal speech present Extrem Other: no pain with pronation of LUE against resistance. 2+ radial pulses. DTRs symmetrical. Cervical ROM normal. Left upper extremity: normal capillary refill and elbow/forearm (5/5 motor strength of LUE) Details: normal to inspection, tenderness, abnormal ROM Details: pain with active ROM and distal pulses intact; no swelling and no unusual warmth Psych Appearance: grossly normal Mental Status: mental status grossly normal Speech and movement: Normal speech and movement present Affect: normal affect Attitude: cooperative Thought process: Normal thought process present Thought content: Normal thought content present Insight: Good insight present (Psych) Judgement: Good judgement present (Psych) Assessment & Plan Assessment & Plan (1) Spondylosis of lumbar region without myelopathy or radiculopathy: Code(s): M47.816 - Spondylosis without myelopathy or radiculopathy, lumbar region Category: Medical (2) Vertebrogenic low back pain: Code(s): M54.51 - Vertebrogenic low back pain Category: Medical (3) Chronic pain syndrome: Code(s): G89.4 - Chronic pain syndrome Category: Medical Plan The MRI is negative for endplate changes. Therefore most likely the pain of the patient is coming from facet arthropathy. I will schedule as we planned before diagnostic medial branch block for this patient. After that I will perform with good results of medial branch block the sprint PNS on the lower lumbar spine. I will see this patient on the injection and after that I will see her as a follow-up. The injection will be diagnostic L3, L4, dorsal ramus L5 medial branch block bilateral. Patient Instructions: I here by testify that I spent 32 minutes in conversation with this patient as well as evaluating her recent MRI images, evaluating prior records, planning her care and organizing this note. Coding Level of Care Code Est Pt Level 4 (33571) Diagnoses Spondylosis of lumbar region without myelopathy or radiculopathy M47.816 Vertebrogenic low back pain M54.51 Chronic pain syndrome G89.4
[2023-10-15 08:51] VITALS: BP 122/62; PULSE 70; RESP 16; O2SAT 98; BMI 29.0
== END 2023-10-15 09:01 | disposition home or self-care (01) ==
PROVIDERS: PCP Internal Medicine; Visit Provider Anesthesiology
DX: M47.816 Spondylosis without myelopathy or radiculopathy, lumbar region (principal); M54.51 Vertebrogenic low back pain; G89.4 Chronic pain syndrome
CPT/HCPCS: 99214

== ENCOUNTER → 2023-10-15 08:43 | Outpatient (BNVA) | payer OTHER, SELFPAY | PROVIDERS: PCP Internal Medicine; Visit Provider Anesthesiology ==

== ENCOUNTER 2023-11-18 06:18 | Outpatient (REF) | payer OTHER, SELFPAY ==
--- NOTE | ~2023-11-18 | FL_ITS ---
EXAMINATION: XR FLUOROSCOPY WITH IMAGES CLINICAL INFORMATION: Lumbar spondylosis. COMPARISON: None available. TECHNIQUE: Fluoroscopy Supervised By: Dr. Raymundo Phillips. Fluoroscopy Time: 0.7 minutes. Cumulative Dose: 7.47 mGy. DAP: 0.129 Gycm2. Images: 12. FINDINGS: Intraoperative fluoroscopy and spot films were performed during a procedure in the OR. Transforaminally placement needles are seen at L4-S1 bilaterally. Contrast media is seen injected around the needle tips likely in the epidural space. Please correlate with Dr. Raymundo Phillips's report for complete details. FL/FL guidance in treatment room IMPRESSION: Intraoperative fluoroscopy and spot films were obtained. Please see Dr. Raymundo Phillips's report for complete details.
== END 2023-11-18 06:19 | disposition home or self-care (01) ==
LOC: CF 06:18
PROVIDERS: Visit Provider Anesthesiology
DX: M47.816 Spondylosis without myelopathy or radiculopathy, lumbar region (principal); M54.51 Vertebrogenic low back pain; G89.4 Chronic pain syndrome
CPT/HCPCS: 64493; 64494; J2795; Q9967

== ENCOUNTER 2023-11-18 12:56 | Outpatient (AMB) | payer OTHER, SELFPAY ==
[2023-11-18 12:56] VITALS: PULSE 88; RESP 16; O2SAT 99; BMI 29.0
--- NOTE | 2023-11-18 12:56 | MHC.OFFVIS ---
Vital Signs 11/18/23 12:56 11/18/23 14:13 Height 5 ft 4 in Weight 169 lb BMI 29.0 BP 122/70 Blood Pressure Location Lt brachial Lt brachial Position Sitting Sitting Respiration 16 18 Pulse 88 80 Pulse Source Pulse Oximeter Pulse Oximeter Pulse Oximetry (%) 99 98 Oxygen Delivery Method Room Air Room Air Comment Pre-Op Post-Op Intake Visit Reasons: BILATERAL DIAGNOSTIC L3, L4, DRL5 MBB Allergies No Known Allergies Allergy (Verified 10/15/23 08:47) [facility] Medical History Arm pain, left Family history of thyroid disease in maternal grandfather Hx LEEP (loop electrosurgical excision procedure), cervix, (~06/2012) Migraine Neuropathic pain of left forearm Surgical History History of salpingectomy (~2013) History of 2 sections Family History Father Hypertension Mother Thyroid disease Maternal Grandmother Hypertension Diabetes mellitus Maternal Aunt Hypertension Family/Other Mental health disorder Social History Housing: House Alcohol intake: current Alcohol intake frequency: holidays/special occasions only Alcohol type: beer Patient Tobacco Use Status: Never used Tobacco e-Cigarette/Vaping Use: Never Used Second Hand Smoke Exposure: No service: No Current occupational status: employed 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 Cognitive needs: No Hearing needs: No Vision needs: Yes Female Reproductive History Menstrual Age of Menarche: 12 Physical Exam Vital Signs: Last Vital Signs Pulse 80 11/18/23 14:13 Resp 18 11/18/23 14:13 BP 122/70 11/18/23 14:13 Pulse Ox 98 11/18/23 14:13 Oxygen Delivery Method Room Air 11/18/23 14:13 BMI result Body Mass Index 29.0 Assessment & Plan Assessment & Plan (1) Spondylosis of lumbar region without myelopathy or radiculopathy: Code(s): M47.816 - Spondylosis without myelopathy or radiculopathy, lumbar region Category: Medical Plan: Diagnostic medial branch block L3,L4 dorsal ramus L5 bilateral.? ? ?Informed consent was explained to the patient. All questions were explained and? answered.? The patient was taken inside the operating room where she was positioned prone on the operating table. Time-out was performed delineating correct site, side, the nature of the procedure, patient's allergy, . All operating room staff was participating in OR time-out procedure. ? ? The lower back was prepped with ChloraPrep and draped with sterile towels.? C-arm was brought over the operating field and sq picture of L4-, L5 vertebra and S1 AREA were delineated on the screen.? Point of interest were delineated as confluence of superior articular process of L4 and L5 vertebra bilaterally with corresponding transverse processes as well as confluence of the sacral alae bilaterally with superior articular process of S1.? The projection of the point of interest to the skin were injected with the small amount of local anesthetic lidocaine 2% 1-1.5 cc.? After that 22 gauge 3.5 inch spinal needle was driven sequentially to the points of interest in tunnel vision fashion. After needles gently contacted the bone at the point of interests the needle was injected with small amount of the contrast.? The injection of the contrast did not demonstrate any intravascular or intrathecal spread of the contrast.? After that injection of the? ropivacaine 0.5%-1cc was performed at each needle location.??after that the needles were removed and Bandaids were applied. ? Upon completion of the injections? needle was? removed and sterile Band-Aids were applied.? The patient tolerated procedure very well. (2) Vertebrogenic low back pain: Code(s): M54.51 - Vertebrogenic low back pain Category: Medical (3) Chronic pain syndrome: Code(s): G89.4 - Chronic pain syndrome Category: Medical Plan The MRI is negative for endplate changes. Therefore most likely the pain of the patient is coming from facet arthropathy. I will schedule as we planned before diagnostic medial branch block for this patient. After that I will perform with good results of medial branch block the sprint PNS on the lower lumbar spine. I will see this patient on the injection and after that I will see her as a follow-up. The injection will be diagnostic L3, L4, dorsal ramus L5 medial branch block bilateral. Coding Level of Care Code Procedure Only Diagnoses Spondylosis of lumbar region without myelopathy or radiculopathy M47.816 Vertebrogenic low back pain M54.51 Chronic pain syndrome G89.4
[2023-11-18 14:13] VITALS: BP 122/70; PULSE 80; RESP 18; O2SAT 98
== END 2023-11-18 14:13 | disposition home or self-care (01) ==
LOC: HO.PMCPRC 12:56
PROVIDERS: PCP Internal Medicine; Visit Provider Anesthesiology
DX: M47.816 Spondylosis without myelopathy or radiculopathy, lumbar region (principal); M54.51 Vertebrogenic low back pain; G89.4 Chronic pain syndrome
CPT/HCPCS: 64493; 64494

== ENCOUNTER 2024-02-25 13:00 | Outpatient (AMB) | payer OTHER, SELFPAY ==
--- NOTE | 2024-02-25 13:18 | MHC.PC.OV ---
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: No Accompanied by: Self / Same As Patient Allergies No Known Allergies Allergy (Verified 02/25/24 13:38) Medication List - Last Reconciled 02/25/24 by Evy Petty MD cyclobenzaprine 5 mg PO BEDTIME 90 days ibuprofen 800 mg PO TID PRN naproxen 500 mg PO DAILY PRN 90 days Tobacco use date assessed: 02/25/24 Dental Screening Dental Screen Date: 02/25/24 Did you have a dental visit in the last 12 months?: Yes Did you have a dental problem in the last 6 months where you did not have access to dental care?: No Was dental information given to patient?: Patient has dentist HPI HPI Comments History of Present Illness Details This is a 43-year-old female that comes for her physical exam. Pap smear done 2021 and was normal with HPV negative. She has low back pain and would like to see Neurosurgery. [facility] Medical History (Updated 02/25/24 @ 13:48 by Evy Petty MD) Hx LEEP (loop electrosurgical excision procedure), cervix, (~06/2012) Migraine Neuropathic pain of left forearm Family history of thyroid disease in maternal grandfather Arm pain, left Surgical History History of salpingectomy (~2013) History of 2 sections Family History Father Hypertension Mother Thyroid disease Maternal Grandmother Hypertension Diabetes mellitus Maternal Aunt Hypertension Family/Other Mental health disorder Social History (Updated 02/25/24 @ 13:43 by Evy Petty MD) Housing: House Alcohol intake: current Alcohol intake frequency: holidays/special occasions only Alcohol type: beer and wine Patient Tobacco Use Status: Never used Tobacco e-Cigarette/Vaping Use: Never Used Second Hand Smoke Exposure: No service: No Current occupational status: employed 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 1. Little interest or pleasure in doing things: not at all 2. Feeling down, depressed, or hopeless: not at all 3. Trouble falling or staying asleep, or sleeping too much: not at all 4. Feeling tired or having little energy: not at all 5. Poor appetite or overeating: not at all 6. Feeling bad about yourself - or that you are a failure or have let yourself or your family down: not at all 7. Trouble concentrating on things, such as reading the newspaper or watching television: not at all 8. Moving or speaking so slowly that other people could have noticed. Or the opposite - being so fidgety or restless that you have been moving around a lot more than usual: not at all 9. Thoughts that you would be better off or of hurting yourself in some way: not at all Total score: 0 Depression Screening Interpretation: Negative Depression Screening Done: Yes 72956 - PHQ-9 Billing: Yes Source: Developed by Drs. Miguel Santiago, Florence Rodriguez, Praveen Faust and colleagues, with an educational ghislaine from [employer] Thrive Questionnaire Date Thrive assessed: 02/25/24 I am a: Patient What is your living situation today?: I have a steady place to live Within the past 12 months, did the food you bought not last and you didn't have the money to get more?: I choose not to answer this question Within the past 12 months, did you worry whether your food would run out before you got money to buy more?: Never true Do you have trouble paying for medicines?: No Do you have trouble getting transportation to medical appointments?: No Do you have trouble paying your heating and electricity bill?: No Do you have trouble taking care of your child, family member or friend?: No Do you have trouble with day-to-day activities such as bathing, preparing meals, shopping, managing finances, etc.?: No Are you currently unemployed and looking for a job?: No Are you interested in more education?: No Please select the resources that you would like help with: None Currently or been in a relationship where the following occur: I choose not to answer THRIVE Score: 0 AUDIT C Alcohol Use Questionnaire (AUDIT-C) 1. How often do you have a drink containing alcohol?: Never Total Score: 0 Score Reviewed/Action Taken: No BREE-7 AMB Questionnaire BREE-7 Date BREE - 7 assessed: 02/25/24 Feeling nervous, anxious, or on edge: 0 = Not at all Not being able to stop or control worryin = Not at all Worrying too much about different things: 0 = Not at all Trouble relaxin = Not at all Being so restless that it is hard to sit still: 0 = Not at all Becoming easily annoyed or irritable: 0 = Not at all Feeling afraid as if something awful might happen: 0 = Not at all Total BREE-7 score (0-4 normal; 5-9 mild; 10-14 moderate; 15-21 severe): 0 Source: Developed by Drs. Miguel Santiago, Florence Rodriguez, Praveen Faust and colleagues, with an educational ghislaine from [employer] BREE-7 Assessment Billing BREE-7 Assessment Tool: BREE-7 Assessment 21243 Review of Systems Const All systems reviewed & are unremarkable except as noted in HPI and below Card Denies chest pain at rest, Denies chest pain with activity, Denies edema, Denies irregular heart rhythm, Denies claudication, Denies dyspnea, Denies dyspnea on exertion, Denies orthopnea, Denies paroxysmal nocturnal dyspnea and Denies slow heart rate Resp Denies cough, Denies dyspnea and Denies dyspnea on exertion GI Denies abdominal pain, Denies change in bowel habits, Denies excessive flatus, Denies nausea and Denies vomiting Denies urinary incontinence, Denies urinary hesitancy and Denies urinary urgency Musc Denies atrophy, Denies deformity and Denies limited range of motion Skin/Breast Denies bleeding lesions, Denies changing lesions and Denies rash Physical exam (Primary Care) Vital Signs: Last Vital Signs BP 120/80 02/25/24 13:19 BMI result Body Mass Index 29.7 Tobacco/Smoking Status: Tobacco use Status Tobacco use date assessed 02/25/24 02/25/24 13:26 Patient Tobacco Use Status Never used Tobacco 02/25/24 13:26 Tobacco use type 04/08/24 09:48 e-Cigarette/Vaping Use Never Used 02/25/24 13:26 PHQ-9: PHQ-9 Score PHQ-9: Total score 0 02/25/24 13:26 Depression Screening Interpretation: Negative Thrive Assessment: Date of Thrive Assessment Date Thrive assessed 02/25/24 02/25/24 13:26 Currently or been in a relationship where the following occur: I choose not to answer HENMT Head: Yes normal to inspection, Yes normocephalic and Yes atraumatic Ears: external ears normal Eyes General: appearance normal, both eyes and all related structures Eyelids: Yes eyelids normal Conjunctivae: conjunctivae normal Neck Neck: Yes normal visual inspection and Yes supple Resp Effort & Inspection: normal respiratory effort Auscultation: clear to auscultation bilaterally Cardio Jugular venous distension: no JVD Rate: regular rate Rhythm: regular rhythm Heart sounds: S1 normal heart sound present and S2 normal heart sound present GI Inspection: Yes normal to inspection Palpation (GI): Soft to palpation and nontender Auscultation: normal bowel sounds Skin General skin exam: no rashes or lesions noted Neuro General: no focal motor deficits Extrem General: Yes full ROM Psych Appearance: grossly normal Assessment and Plan Assessment & Plan (1) Physical exam: Code(s): Z00.00 - Encounter for general adult medical examination without abnormal findings Plan: Repeat in a year. (2) Spondylosis of lumbar region without myelopathy or radiculopathy: Code(s): M47.816 - Spondylosis without myelopathy or radiculopathy, lumbar region Plan: Referred to Neurosurgery. Orders: Orders Comprehensive [place]. Panel Fast Today Z00.00 - Encounter for general adult medical examination without abnormal findings Lipid Panel Today Z00.00 - Encounter for general adult medical examination without abnormal findings Referrals Neuro Spine Referral M47.816 - Spondylosis without myelopathy or radiculopathy, lumbar region Medications: Refilled cyclobenzaprine 5 mg PO BEDTIME 90 days 90 tabs 0RF ibuprofen 800 mg PO TID PRN 90 tabs 1RF for pain M79.2 - Neuralgia and neuritis, unspecified naproxen 500 mg PO DAILY 90 days PRN 90 tabs 1RF pain Coding Level of Care Code Est Pt Level 3 (33275) Est Pt Prev Care 40-64y(47643) Diagnoses Physical exam Z00.00 Spondylosis of lumbar region without myelopathy or radiculopathy M47.816 Additional Codes BREE-7 Assessment Billing - BREE-7 Assessment Tool: BREE-7 Assessment 56486 ([id number]) Time Spent (min) 33
[2024-02-25 13:19] VITALS: BP 120/80; BMI 29.7
== END 2024-02-25 13:48 | disposition home or self-care (01) ==
PROVIDERS: PCP Internal Medicine; Visit Provider Internal Medicine
DX: Z00.00 Encounter for general adult medical examination without abnormal findings (principal); M47.816 Spondylosis without myelopathy or radiculopathy, lumbar region

== ENCOUNTER → 2024-02-25 13:00 | Outpatient (BNVA) | payer OTHER, SELFPAY | PROVIDERS: PCP Internal Medicine; Visit Provider Internal Medicine | DX: Z00.00 Encounter for general adult medical examination without abnormal findings (principal); M47.816 Spondylosis without myelopathy or radiculopathy, lumbar region | CPT/HCPCS: 96127 ==

== ENCOUNTER 2024-03-10 12:58 | Outpatient (AMB) | payer OTHER, SELFPAY ==
--- NOTE | 2024-03-10 13:02 | HO.SPINEOV ---
Intake Visit Reasons: Back pain Intake Note: Ms. Aris Moya is here today c/o Low back pain. Machine Folder Required: No Allergies No Known Allergies Allergy (Verified 03/10/24 13:04) Assessment & Plan Assessment & Plan (1) Facet arthropathy: Code(s): M47.819 - Spondylosis without myelopathy or radiculopathy, site unspecified Category: Medical Plan Dear Dr. Murtaza Petty, Thank you for referring Kayy to our office today. 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 She comes in today with a chief complaint of low back pain with shooting pains into her bilateral lower extremities. When describing the radiation of her pain she states it starts in her low back an travels down into her anterior thighs. It is associated with some burning. She feels her pain is worse with prolonged sitting and better with movement. Of note, she had 100% complete relief of her pain for 2 years with medial branch block L3-L4 dorsal ramus L5 injections completed by Dr. Phillips in pain management. She has tried several different types of interventions since then and feels as though they have not been helpful for her. She has been to physical therapy in the past, has attempted director of healthcare systems, and has utilized a plethora of [id number] medications without significant relief of her pain. She currently is taking cyclobenzaprine to help mitigate the pain, but feels as though it makes her tired / groggy the next day after taking it. PMH: Hx LEEP procedure, section. Social hx: The patient does not smoke; reports no substance use. Medications: Ibuprofen, cyclobenzaprine, naproxen. Allergies: NKDA Physical exam: The patient has 5/5 strength in her upper and lower extremities. She is able to ambulate well and rises from a seated position without difficulty. She has no significant sensational deficits on exam. (-) Guilherme's bilaterally, (-) Vidal finger test, (-) bilateral SI joint compression test, (-) clonus, (-) Fine's. Imaging review: MRI of the lumbar spine completed here at [facility] shows diffuse facet arthropathy in the lumbar spine. There is no other notable central canal or foraminal stenosis / exiting nerve root compression. Impression: Kayy is a pleasant 43-year-old female who comes in today with a chief complaint of low back pain and shooting pains into her bilateral anterior thighs. Do not see any significant abnormalities in her lumbar spine MRI aside from diffuse facet arthropathy. I think that the patient would be a good candidate for facet blocks. The patient specifically requested a 2nd opinion / referral to an outside provider / facility for pain management, as she feel she has not had success with our department. Thus, I will provide the patient with a referral to [facility] for evaluation/discussion regarding facet blocks. She was encouraged to follow up with Dr. Phillips thereafter if she does not obtain relief from their proposed interventions. Jacqueline may still be able to evalaute her for possible temporizing measures such as a pain pump or SCS. She understands and agrees to this plan. Thank you for allowing us to care for your patient. The total time spent with this visit with this patient was 45 minutes reviewing history, physical exam, MRI imaging review, and implementation of treatment plan or further diagnostic testing Jeevan Miranda MD,PhD [facility] Orders: Referrals Pain Management Referral M47.819 - Spondylosis without myelopathy or radiculopathy, site unspecified Coding Level of Care Code New Pt Level 4 (40252) Diagnoses Facet arthropathy M47.819
== END 2024-03-10 13:43 | disposition home or self-care (01) ==
PROVIDERS: PCP Internal Medicine; Referring Provider Internal Medicine; Visit Provider Physician Assistant
DX: M47.819 Spondylosis without myelopathy or radiculopathy, site unspecified (principal)
CPT/HCPCS: 99204

== ENCOUNTER → 2024-03-10 12:58 | Outpatient (BNVA) | payer OTHER, SELFPAY | PROVIDERS: PCP Internal Medicine; Visit Provider Physician Assistant ==

== ENCOUNTER 2024-08-02 13:47 | Outpatient (AMB) | payer OTHER, SELFPAY ==
--- NOTE | 2024-08-02 13:50 | MHC.OFFVIS ---
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 Safety Representative Required: No Safety Representative Services: Safety Representative Present Information Interpreted: clinical only Medical Insurance Collector: Medical Insurance Collector Present Allergies No Known Allergies Allergy (Verified 08/02/24 13:58) Medication List - Last Reconciled 08/02/24 by Hyun Rosa CNM cyclobenzaprine 5 mg PO BEDTIME 90 days ibuprofen 800 mg PO TID PRN naproxen 500 mg PO DAILY PRN 90 days Is last menstrual period known: Yes Last menstrual period: 07/28/24 HPI HPI 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 She is not really having any issues her periods continued to be very painful and crampy they last about 5 days all told the 3 days a really very heavy bleeding with clots.. She had a history of salpingectomy. She had a history of and I had told her it a previous visit that that may explain why her periods have become so crampy in the her cervix is scarred very tightly closed. She says they are also heavy those 3 days and she wears extra pads at night to avoid soiling. She says she did have a Mirena that was inserted at the time that she had a salpingectomy but a couple of months later it was giving her too much pain and discomfort and had to be removed by Dr. Li in it was a challenging removal because it seemed to be little bit stuck in a there was a piece of meat that came out with it. She has 3 children ranging from 23 to 15 and her youngest is autistic nonverbal. COUNT INCLUDES THE [facility] Medical History Hx LEEP (loop electrosurgical excision procedure), cervix, (~06/2012) Migraine Neuropathic pain of left forearm Family history of thyroid disease in maternal grandfather Arm pain, left Surgical History History of salpingectomy (~2013) History of 2 sections Family History Father Hypertension Mother Thyroid disease Maternal Grandmother Hypertension Diabetes mellitus Maternal Aunt Hypertension Family/Other Mental health disorder Social History Housing: House Alcohol intake: current Alcohol intake frequency: holidays/special occasions only Alcohol type: beer and wine Patient Tobacco Use Status: Never used Tobacco e-Cigarette/Vaping Use: Never Used Second Hand Smoke Exposure: No service: No Current occupational status: employed Current occupation: [employer] Current occupational exposures/hazards: No Cognitive needs: No Hearing needs: No Vision needs: Yes Female Reproductive History Menstrual Age of Menarche: 12 Duration of menses: 3-5 days Date of last menstrual period: 07/28/24 control method: permanent sterilization Total pregnancies: 3 Full term: 3 Date of last pap smear: 02/19/22 (negative,hpv-,2020,neg.) Date of Mammogram: 09/04/23 (neg.) Physical Exam Vital Signs: Last Vital Signs BP 118/70 08/02/24 13:57 BMI result Body Mass Index 30.9 Const General: healthy appearing, comfortable, no acute distress, well developed and alert Nutritional Appearance: average body habitus Orientation/consciousness: patient oriented x3 Limitations: no limitations HEENT Head: Yes normocephalic Neck Neck: Yes normal visual inspection Chest Chest palpation & inspection: normal inspection of the chest Breast/axilla inspection: normal inspection of the breasts and normal inspection of the axillae Breast/axilla palpation: normal palpation of the breasts and normal palpation of the axillae Resp Effort & Inspection: normal respiratory effort GI Inspection: Yes normal to inspection, No Abdominal wall edema and No distended Palpation (GI): Soft to palpation and nontender Other: Normal external exam vagina is pink and moist cervix pink moist no abnormal discharge cervix is tightly closed-does not easily admit a Q-tip. Cervix is long close thick mobile nontender uterus anteverted, question enlarged versus scar tissue from previous 2 C sections palpable. General: Yes bladder normal to palpation External Female Exam: normal external appearance and normal appearance of the urethra Speculum Exam - Vagina: normal appearance of the vagina, normal palpation and normal vaginal discharge Speculum Exam - Cervix: normal appearance of the cervix, normal palpation and nontender Bimanual exam- vagina & uterus: normal bimanual exam, normal palpation, uterine size normal, bladder normal to palpation, consistency normal, normal palpation, uterine mobility normal, uterine shape normal, No Cervical tenderness present, non-tender and no cervical motion tenderness Bimanual Exam- Adnexa, other: normal adnexae, no masses, normal and No adnexal tenderness Neuro General: patient oriented x3 Assessment & Plan Assessment & Plan (1) History of 2 sections: Code(s): Z98.891 - History of uterine scar from previous surgery Category: Surgical (2) Hx LEEP (loop electrosurgical excision procedure), cervix, : Onset Date: ~06/2012 Comment: 02/05/21 pap-neg/ neg hpv; 02/18/2022 Pap is negative with negative HPV. Code(s): O34.40 - Maternal care for other abnormalities of cervix, unspecified trimester; Z98.890 - Other specified postprocedural states Category: Medical (3) History of salpingectomy: Onset Date: ~2013 Comment: done at [facility], after tubal ligation, 2' infection in tubes, L> R - no pain since Code(s): Z90.79 - Acquired absence of other genital organ(s) Category: Surgical (4) Well woman exam with routine gynecological exam: Code(s): Z01.419 - Encounter for gynecological examination (general) (routine) without abnormal findings Category: Medical (5) Hx of dysmenorrhea: Code(s): Z87.42 - Personal history of other diseases of the female genital tract Category: Medical (6) Bulky or enlarged uterus: Code(s): N85.2 - Hypertrophy of uterus Category: Medical Plan -----Discussed in this visit the following: healthy balanced diet, regular and consistent exercise, getting recommended health screens, doing the best she can for her particular health concerns, kegel exercises, pap smear screening and followup recommendations, mammography screening and SBE, normal changes in cycles in her life stage--- . After the visit I called the patient back and offered a pelvic ultrasound to just assess for possibility of uterine fibroids or anything that could explain the uterus feeling slightly bulky at exam today it maybe that I am just palpating scar tissue.. We will have a visit after to review.. During the visit she and I talked about the possibility of trying a Mirena IU S again to see if it would ameliorate her heavy crampy periods. Given how tightly closed her post LEEP cervix is I would only attempt insertion on her heaviest day of her menses which for her is day 2. Patient had left plan to call on the day her periods starts so that we could for insertion on day 2 but 1st we will have the pelvic ultrasound to just assess uterine anatomy.. Patient has a mammogram coming up next month. Pap smear was not done because her last 2 Paps were negative post LEEP. Pelvic ultrasound Follow-up visit after the ultrasound. Future Mirena insertion on day 2 of menses- if all ok w u/s. Orders: Orders US pelvic and transvaginal Today N85.2 - Hypertrophy of uterus, O34.40 - Maternal care for other abnormalities of cervix, unspecified trimester, Z01.419 - Encounter for gynecological examination (general) (routine) without abnormal findings, Z87.42 - Personal history of other diseases of the female genital tract, Z90.79 - Acquired absence of other genital organ(s), Z98.890 - Other specified postprocedural states, Z98.891 - History of uterine scar from previous surgery Coding Level of Care Code Est Pt Prev Care 40-64y(05085) Diagnoses History of 2 sections Z98.891 Hx LEEP (loop electrosurgical excision procedure), cervix, O34.40; Z98.890 History of salpingectomy Z90.79 Well woman exam with routine gynecological exam Z01.419 Hx of dysmenorrhea Z87.42 Bulky or enlarged uterus N85.2
[2024-08-02 13:57] VITALS: BP 118/70; BMI 30.9
== END 2024-08-02 15:06 | disposition home or self-care (01) ==
PROVIDERS: PCP Internal Medicine; Visit Provider Advanced Practice Midwife
DX: Z01.419 Encounter for gynecological examination (general) (routine) without abnormal findings (principal); N85.2 Hypertrophy of uterus
CPT/HCPCS: 99396; 99459

== ENCOUNTER 2024-08-02 13:47 | Outpatient (REF) | payer OTHER, SELFPAY ==
--- OUTSIDE RECORDS SUMMARY | 2024-08-02 17:25 | XMS_ITS | Clinical Summary ---
Author Organization [employer] Address [address] [facility] [address] [place] [address] Care Team Providers Care Sewer Repairer Name Role Phone Unavailable Primary Care Provider Unavailabl e Allergies No known active allergies Medications cyclobenzaprine (Flexeril) 5 MG tablet Take 5 mg by mouth at bedtime. Active ibuprofen 800 MG tablet TAKE 1 TABLET BY MOUTH THREE TIMES A DAY NEEDED FOR PAIN 03/30/2023 Active naproxen (Naprosyn) 500 MG tablet Take 1 tablet by mouth every 12 (twelve) hours. Active Active Problems Problem Noted Date Diagnosed Date Encounter for dental examination 10/01/2023 Normal oral exam 10/01/2023 Encounters Date Type Department Care Team Description 07/02/2024 3:00 PM EST Office Visit [facility] [address] [place] [address] Awilda Valle Dental calculus (Primary Dx); Crowded teeth from Last 3 Months Social History Tobacco Use Types Packs/Day Years Used Date Smoking Tobacco: Never Passive Smoke Exposure: Never Smokeless Tobacco: Never Tobacco Cessation:Counseling Given: Not Answered Comments Unknown Sex and Gender Information Value Date Recorded Sex Assigned at Female 04/08/2022 10:25 AM EDT Legal Sex Female 10:25 AM EDT Gender Identity Female 04/08/2022 10:25 AM EDT Sexual Orientation Don't know 04/08/2022 10 :25 AM EDT Last Filed Vital Signs Vital Sign Reading Time Taken Comments Blood Pressure 116/72 07/02/2024 3:17 PM EST Pulse 74 10/01/2023 3:03 PM EDT Temperature - - Respiratory Rate - - Oxygen Saturation - - Inhaled Oxygen Concentration - - Weight - - Height - - Body Mass Index - - Plan of Treatment Upcoming Encounters Date Type Department Care Team (Late st Contact Info) Description 01/07/2025 1:00 PM EDT Office Visit [facility] [address] [place] [address] Awilda Valle [address] [place] [address] Health Maintenance Due Date Last Done Comments Depression Screening 1981 HIV Screening 1981 SDOH Screening 1981 Alcohol/Substance Use Screening 1993 Family Planning (PISQ) 1996 Hepatitis C Screening 1999 DTaP/Tdap/Td Vaccines (1 - Tdap) 2000 Hepatitis B Vaccines (1 of 3 - 19+ 3-dose series) 2000 Pap Smear 2002 Cervical Cancer Screening 2011 HPV/Cotest 2011 Mammogram 2021 Dental X-Ray: Full Mouth 02/19/2022 02/18/2019, 02/07 COVID-19 Vaccine ( season) 2024 Influenza Vaccine (#1) 2024 Dental Oral Exam 04/02/2024 10/01/2023, , 02/18/2019, Additional history exists Dental X-Ray: Bitewings 10/01/2024 10/01/19 24, 01/13/2023, 02/21/2021, Additional history exists Dental Prophylaxis 12/31/2024 07/02/2024, 0 10/01/2023, 01/13/2023, Additional history exists Tobacco Screening 07/02/2025 07/02/2024 Zoster Vaccines (1 of 2) 2031 RSV Patients and Patients Aged 60 years or older (1 - 1-dose 75+ series) 2056 HIB Vaccines Aged Out No longer eligi ble based on patient's age to complete this topic HPV Vaccines Aged Out No longer eligi ble based on patient's age to complete this topic Hepatitis A Vaccines Aged Out No long er eligible based on patient's age to complete this topic IPV Vaccines Aged Out No longer eligi ble based on patient's age to complete this topic Meningococcal Vaccine Aged Out No sri chris eligible based on patient's age to complete this topic Pneumococcal Vaccine: Pediatrics (0 to 5 Years) and At-Risk Patients (6 to 49) Years) Aged Out No longer eligible based on patient's age to complete this topic RSV under 20 months Aged Out No longe r eligible based on patient's age to complete this topic Rotavirus Vaccines Aged Out No longer eligible based on patient's age to complete this topic Procedures Procedure Name Priority Date/Time Associated Diagnosis Comments ORAL HYGIENE INSTRUCTIONS Routine 2024 3:00 PM EST Dental calculus PROPHYLAXIS - ADULT Routine 07/02/2024 3 :00 PM EST Dental calculus BITEWINGS - 4 RADIOGRAPHIC IMAGES Routine 10/01/2023 3:00 PM EDT PERIODIC ORAL EVALUATION - ESTABLISHED PATIENT Routine 10/01/2023 3:00 PM EDT INTRAORAL - COMPLETE SERIES OF RADIOGRAPHIC IMAGES Routine 02/18/2019 12:00 AM EDT from Last 3 Months or Most Recently Relevant to Health Maintenance Insurance DENTAL - [facility] [employer] [place] [facility] [place] (MEDICAID)
--- OUTSIDE RECORDS SUMMARY | 2024-08-02 17:26 | XMS_ITS | Encounter Summary ---
Author Organization [employer] Address [address] [facility] [address] [place] [address] Care Team Providers Care Project Director Name Role Phone Unavailable Primary Care Provider Unavailabl e Encounter Details Date Type Department Care Team (Latest Contact Info) Description 02/21/2021 Abstract [facility] CONVERSIONS Dental, Provider, DDS Social History Tobacco Use Types Packs/Day Years Used Date Smoking Tobacco: Never Assessed Comments Unknown Sex and Gender Information Value Date Recorded Sex Assigned at Female 04/08/2022 10:25 AM EDT Legal Sex Female 10:25 AM EDT Gender Identity Female 04/08/2022 10:25 AM EDT Sexual Orientation Don't know 04/08/2022 10 :25 AM EDT documented as of this encounter Plan of Treatment Upcoming Encounters Date Type Department Care Team (Late st Contact Info) Description 01/07/2025 1:00 PM EDT Office Visit [facility] [address] [place] [address] Mauro Vallearis [address] [place] [address] documented as of this encounter Visit Diagnoses Not on filedocumented in this encounter
--- OUTSIDE RECORDS SUMMARY | 2024-08-02 17:26 | XMS_ITS | Encounter Summary ---
Author Organization [employer] Address [address] [facility] [address] [place] [address] Care Team Providers Care Director River [employer] Name Role Phone Unavailable Primary Care Provider Unavailabl e Encounter Details Date Type Department Care Team (Latest Contact Info) Description 02/18/2019 Abstract [facility] CONVERSIONS Dental, Provider, DDS Social History Tobacco [...] Description 01/07/2025 1:00 PM EDT Office Visit [facility] [address] [place] [address] Leonard, Awilda [address] [place] [address] documented as of this encounter Visit Diagnoses Not on filedocumented in this encounter
[2024-08-03 11:50] LABS: CT PCR NOT DETECTED (Not Detect.); NG PCR NOT DETECTED (Not Detect.)
[2024-08-03 14:59] LABS: Bacterial Vaginosis PCR POSITIVE (Negative); Candida Group PCR NOT DETECTED (Not Detect); Candida glab krusei PCR NOT DETECTED (Not Detect); Trichomonas vaginalis PCR NOT DETECTED (Not Detect)
== END 2024-08-02 13:48 | disposition home or self-care (01) ==
LOC: HO.LAB 13:47
PROVIDERS: PCP Internal Medicine; Visit Provider Advanced Practice Midwife
DX: Z01.419 Encounter for gynecological examination (general) (routine) without abnormal findings (principal); N89.8 Other specified noninflammatory disorders of vagina; N85.2 Hypertrophy of uterus; Z98.891 History of uterine scar from previous surgery; Z98.890 Other specified postprocedural states; Z87.42 Personal history of other diseases of the female genital tract; Z90.79 Acquired absence of other genital organ(s)
CPT/HCPCS: 81515; 87491; 87591

== ENCOUNTER 2024-09-13 16:05 | Outpatient (REF) | payer OTHER, SELFPAY ==
--- NOTE | ~2024-09-13 | US_ITS ---
EXAMINATION: US PELVIS TRANSABDOMINAL AND TRANSVAGINAL HISTORY: Z01.419 - HX OF DYSMENORRHEA COMPARISON: Comparison is made with the prior examination dated 09/08/2017. TECHNIQUE: Transabdominal and endovaginal real-time 2D new-scale ultrasound was performed. FINDINGS: Uterus: The uterus is normal in size, measuring 8.6 x 4.6 x 5.5 cm. Myometrium has a normal echotexture. No fibroids are identified. Endometrium: The endometrial stripe measures 20 mm in thickness. There are nabothian cysts in the cervix. Right ovary: The right ovary measures 2.2 x 1.5 x 1.4 cm. The right ovary is normal in size and echotexture. Left ovary: The left ovary measures 3.1 x 1.9 x 2.0 cm. The left ovary is normal in size and echotexture. There is a 1.9 x 1.7 x 1.3 cm hypoechoic area with peripheral calcification which may represent a corpus luteum. Pelvic fluid: none. US/US pelvic and transvaginal IMPRESSION: Thickened endometrial stripe. Correlation with the phase of the menstrual cycle is recommended. Electronically signed by: Miguel Walls MD 09/14/2024 07:07 AM EDT
--- OUTSIDE RECORDS SUMMARY | 2024-09-13 18:37 | XMS_ITS | Clinical Summary ---
Author Organization [employer] Address [address] [facility] [address] [place] [address] Care Team Providers Care Boot Maker Name Role Phone Unavailable Primary Care Provider [...] Description 07/02/2024 3:00 PM EST Office Visit [facility] [address] [place] [address] Awilda Valle Dental calculus (Primary Dx); Crowded [...] Description 01/07/2025 1:00 PM EDT Office Visit [facility] [address] [place] [address] Awilda Valle [address] [place] [address] Health Maintenance Due Date Last Done Comments [...] to Health Maintenance Insurance DENTAL - [facility] [employer] [place] [facility] (MEDICAID)
--- OUTSIDE RECORDS SUMMARY | 2024-09-13 18:37 | XMS_ITS | Encounter Summary ---
Author Organization [employer] Address [address] [facility] [address] [place] [address] Care Team Providers Care Pick Up Operator Name Role Phone Unavailable Primary Care Provider Unavailabl e Encounter Details Date Type Department Care Team (Latest Contact Info) Description 02/18/2019 Abstract [facility] CONVERSIONS Dental, Provider, DDS Social History [...] 01/07/2025 1:00 PM EDT Office Visit [facility] [address] [place] [address] LeonardMauroAwilda [address] [place] [address] documented as of this encounter Visit Diagnoses Not on filedocumented in this encounter
--- OUTSIDE RECORDS SUMMARY | 2024-09-13 18:38 | XMS_ITS | Encounter Summary ---
Author Organization [employer] Address [address] [facility] [address] [place] [address] Care Team Providers Care Top Knitter Name Role Phone Unavailable Primary Care Provider Unavailabl e Encounter Details Date Type Department Care Team (Latest Contact Info) Description 02/21/2021 Abstract [facility] CONVERSIONS Dental, Provider, DDS Social History Tobacco [...] 1:00 PM EDT Office Visit [facility] [address] [place] [address] Mauro Vallearis [address] [place] [address] documented as of this encounter Visit Diagnoses Not on filedocumented in this encounter
== END 2024-09-13 16:06 | disposition home or self-care (01) ==
LOC: HO.US 16:05
PROVIDERS: PCP Internal Medicine; Visit Provider Advanced Practice Midwife
DX: N85.2 Hypertrophy of uterus (principal); Z98.890 Other specified postprocedural states; Z87.42 Personal history of other diseases of the female genital tract; Z98.891 History of uterine scar from previous surgery; Z90.79 Acquired absence of other genital organ(s)
CPT/HCPCS: 76830; 76856

== ENCOUNTER → 2024-09-13 16:07 | Outpatient (BNV) | payer OTHER, SELFPAY | PROVIDERS: PCP Internal Medicine; Visit Provider Radiology Diagnostic Radiology | DX: N85.00 Endometrial hyperplasia, unspecified (principal) | CPT/HCPCS: 76830; 76856 ==

== ENCOUNTER 2024-12-08 15:07 | Outpatient (AMB) | payer OTHER, SELFPAY ==
--- NOTE | 2024-12-08 15:21 | MHC.OFFVIS ---
Intake Visit Reasons: U/S results/ std testing Intake Note: Per patient, no symptoms. Just being cautious. Director Of Special Events: Director Of Special Events Present (Abida) Accompanied by: Self / Same As Patient Allergies No Known Allergies Allergy (Verified 12/08/24 15:25) HPI Comments Details: Patient is here today for a follow up pelvic ultrasound. History of heavy menstrual bleeding 3/3 days. History of LEEP in 2012. Last Pap 2021. Had IUD which was painful and removed after three months, difficult removal- found to be stuck. Request STD testing today. History of tubal ligation. [facility] Medical History Thickened endometrium Abnormal uterine bleeding (AUB) Hx LEEP (loop electrosurgical excision procedure), cervix, (~06/2012) Migraine Neuropathic pain of left forearm Family history of thyroid disease in maternal grandfather Arm pain, left Surgical History History of salpingectomy (~2013) History of 2 sections Family History Father Hypertension Mother Thyroid disease Maternal Grandmother Hypertension Diabetes mellitus Maternal Aunt Hypertension Family/Other Mental health disorder Social History Housing: House Alcohol intake: current Alcohol intake frequency: holidays/special occasions only Alcohol type: beer and wine Patient Tobacco Use Status: Never used Tobacco e-Cigarette/Vaping Use: Never Used Second Hand Smoke Exposure: No service: No Current occupational status: employed Current occupation: [employer] Current occupational exposures/hazards: No Cognitive needs: No Hearing needs: No Vision needs: Yes Female Reproductive History Menstrual Age of Menarche: 12 Review of Systems Const All systems reviewed & are unremarkable except as noted in HPI and below Physical Exam Const General: cooperative, healthy appearing and no acute distress Orientation/consciousness: patient oriented x3 GI Inspection: Yes normal to inspection Palpation (GI): Soft to palpation and Other GI palpation findings present (Nontender) Rectal Exam - Female: visual inspection normal General: Yes bladder normal to palpation External Female Exam: normal appearance of the urethra Speculum Exam - Vagina: normal appearance of the vagina, normal palpation and normal vaginal discharge Speculum Exam - Cervix: normal appearance of the cervix, normal palpation and Other cervical findings present (Post LEEP appearance, bled slightly with Pap) Bimanual exam- vagina & uterus: normal bimanual exam, normal palpation, uterine size normal, bladder normal to palpation, normal palpation, uterine shape normal and non-tender Bimanual Exam- Adnexa, other: normal adnexae Neuro General: patient oriented x3 Results Reviewed Results Reviewed: [address] [address] Ultrasound Report Signed Patient: Kayy Colunga MR#: [id number] : 1980 Acct:[id number] Age/Sex: 44 / F ADM Date: 09/13/24 Loc: . Attending Dr: Hyun Rosa CNM Ordering Physician: Hyun Rosa CNM Date of Service: 09/13/24 Procedure(s): US pelvic and transvaginal Accession Number(s): [id number] cc: Hyun Rosa CNM; Evy Riggs MD~ EXAMINATION: US PELVIS TRANSABDOMINAL AND TRANSVAGINAL HISTORY: Z01.419 - HX OF DYSMENORRHEA COMPARISON: Comparison is made with the prior examination dated 09/08/2017. TECHNIQUE: Transabdominal and endovaginal real-time 2D new-scale ultrasound was performed. FINDINGS: Uterus: The uterus is normal in size, measuring 8.6 x 4.6 x 5.5 cm. Myometrium has a normal echotexture. No fibroids are identified. Endometrium: The endometrial stripe measures 20 mm in thickness. There are nabothian cysts in the cervix. Right ovary: The right ovary measures 2.2 x 1.5 x 1.4 cm. The right ovary is normal in size and echotexture. Left ovary: The left ovary measures 3.1 x 1.9 x 2.0 cm. The left ovary is normal in size and echotexture. There is a 1.9 x 1.7 x 1.3 cm hypoechoic area with peripheral calcification which may represent a corpus luteum. Pelvic fluid: none. US/US pelvic and transvaginal IMPRESSION: Thickened endometrial stripe. Correlation with the phase of the menstrual cycle is recommended. Electronically signed by: Miguel Walls MD 09/14/2024 07:07 AM EDT Dictated By: Miguel Walls MD Signed By: <Electronically signed by Miguel Walls MD in OV> 09/14/24 0707 DD/ 1619 TD/TT: 09/13/24 1639 Dry Starch Operator: Assessment & Plan Assessment & Plan (1) Abnormal uterine bleeding (AUB): Code(s): N93.9 - Abnormal uterine and vaginal bleeding, unspecified Category: Medical Plan: Discussed AUB workup to include CBC and TSH, pelvic ultrasound possible EMB, and therapeutic treatment regimen to be discussed at her follow up appointment. The patient expressed understanding and agreement with the plan of care. All of her questions and concerns were addressed to the best of my ability. Total time I personally spent on visit and management today: ?30 minutes. Time spent included review of pertinent office notes in the electronic health record; review of laboratory and imaging results; review of personal family medical history; performing physical exam; discussing diagnosis and plan of care with the patient; documenting the encounter in the EMR. (2) Thickened endometrium: Code(s): R93.89 - Abnormal findings on diagnostic imaging of other specified body structures Category: Medical Plan Discussed: Ultrasound findings revealed thickened endometrium, uncertain at time of cycle with procedure. Plan pelvic ultrasound repeat after next menses. Follow up pending results, possible EMB procedure. Uncertain what she would like to take for cycle control at this time. The patient expressed understanding and agreement with the plan of care. All of her questions and concerns were addressed to the best of my ability. This note is constructed using voice recognition software. While every effort has been made to ensure accuracy, drupal web developer errors may have been included. Orders: Orders Hepatitis B Core Antibody Today Z20.2 - Contact with and (suspected) exposure to infections with a predominantly sexual mode of transmission Syphilis Screen Today Z20.2 - Contact with and (suspected) exposure to infections with a predominantly sexual mode of transmission CT NG by PCR Vag/Cerv Today Z11.3 - Encounter for screening for infections with a predominantly sexual mode of transmission Bacterial Vaginosis Panel Today N93.9 - Abnormal uterine and vaginal bleeding, unspecified, R93.89 - Abnormal findings on diagnostic imaging of other specified body structures, Z11.3 - Encounter for screening for infections with a predominantly sexual mode of transmission Complete Blood Count no Diff Today N93.9 - Abnormal uterine and vaginal bleeding, unspecified, R93.89 - Abnormal findings on diagnostic imaging of other specified body structures US pelvic and transvaginal Today N93.9 - Abnormal uterine and vaginal bleeding, unspecified, R93.89 - Abnormal findings on diagnostic imaging of other specified body structures HIV Ab/Ag Today Z20.2 - Contact with and (suspected) exposure to infections with a predominantly sexual mode of transmission Hepatitis C Antibody Reflex Today Z20.2 - Contact with and (suspected) exposure to infections with a predominantly sexual mode of transmission Pap Smear Today Z01.419 - Encounter for gynecological examination (general) (routine) without abnormal findings Thyroid Stimulating Hormone Today N92.1 - Excessive and frequent menstruation with irregular cycle, N93.9 - Abnormal uterine and vaginal bleeding, unspecified, R93.89 - Abnormal findings on diagnostic imaging of other specified body structures Coding Level of Care Code Est Pt Level 3 (31932) Diagnoses Abnormal uterine bleeding (AUB) N93.9 Thickened endometrium R93.89
--- OUTSIDE RECORDS SUMMARY | 2024-12-08 15:27 | XMS_ITS | Clinical Summary ---
Author Organization [employer] Address [address] [facility] [address] [place] [address] Care Team Providers Care Cross Tie Maker Name Role Phone Unavailable Primary Care [...] dental examination 10/01/2023 Normal oral exam 10/01/2023 Social History Tobacco Use Types Packs/Day Years [...] Description 01/07/2025 1:00 PM EDT Office Visit [facility] [address] [place] [address] Awilda Valle [address] [place] [address] Health Maintenance Due Date Last Done Comments Depression Screening 1981 HIV Screening 1981 SDOH Screening 1981 Disability Screening 1981 Alcohol/Substance Use Screening 1993 Family Planning (PISQ) 1996 Hepatitis C Screening 1999 DTaP/Tdap/Td Vaccines (1 - Tdap) 2000 Hepatitis B Vaccines (1 of 3 - 19+ 3-dose series) 2000 Pap Smear 2002 Cervical Cancer Screening 2011 HPV/Cotest 2011 Mammogram 2021 Dental X-Ray: Full Mouth 02/19/2022 02/18/2019, 02/07 COVID-19 Vaccine ( - 2023- season) 2024 Dental Oral Exam 04/02/2024 10/01/2023, , 02/18/2019, Additional history exists Dental X-Ray: Bitewings 10/01/2024 10/01/19 24, 01/13/2023, 02/21/2021, Additional history exists Dental Prophylaxis 12/31/2024 07/02/2024, 0 10/01/2023, 01/13/2023, Additional history exists Influenza Vaccine (Season Ended) 2025 Tobacco Screening 07/02/2025 07/02/2024 Zoster Vaccines (1 [...] patient's age to complete this topic Meningococcal B Vaccine Aged Out No l onger eligible based on patient's age to complete this topic Meningococcal Vaccine Aged Out No sri chris eligible based on patient's age to complete this topic Pneumococcal Vaccine: Pediatrics (0 to 5 Years) and At-Risk Patients (6 to 49) Years Aged Out No longer eligible based on patient's age to complete this topic RSV under 20 months Aged Out No longe r eligible based on patient's age to complete this topic Rotavirus Vaccines Aged Out No longer eligible based on patient's age to complete this topic Procedures Procedure Name Priority Date/Time Associated Diagnosis Comments PROPHYLAXIS - ADULT Routine 07/02/2024 3 :00 PM EST Dental calculus BITEWINGS - 4 RADIOGRAPHIC IMAGES Routine 10/01/2023 3:00 PM EDT PERIODIC ORAL EVALUATION - ESTABLISHED PATIENT Routine 10/01/2023 3:00 PM EDT INTRAORAL - COMPLETE SERIES OF RADIOGRAPHIC IMAGES Routine 02/18/2019 12:00 AM EDT from Last 3 Months or Most Recently Relevant to Health Maintenance Insurance [facility] - HSN FULL (MEDICAID)
== END 2024-12-08 16:26 | disposition home or self-care (01) ==
LOC: HO.HWS 15:07
PROVIDERS: PCP Internal Medicine; Visit Provider Advanced Practice Midwife
DX: N93.9 Abnormal uterine and vaginal bleeding, unspecified (principal); R93.89 Abnormal findings on diagnostic imaging of other specified body structures
CPT/HCPCS: 99213

== ENCOUNTER 2024-12-08 15:07 | Outpatient (REF) | payer OTHER, SELFPAY ==
[2024-12-08 17:08] LABS: Hematocrit 39.2 % (37.0-47.0); Hemoglobin 12.3 g/dl (12.0-16.0); Mean Corpuscular HGB Conc 31.4 g/dl (31.0-35.0); Mean Corpuscular Hemoglobin 24.9 pg (27.0-33.0); Mean Corpuscular Volume 79.4 fL (80.0-98.0); NRBC Abs Auto 0.000 X10*3/uL (0.0-0.012); NRBC Pct Auto 0.0 /100WBC (0.0-0.2); Platelet Count 387 X10*3/uL (160-400); Red Blood Count 4.94 X10*6/uL (4.20-5.50); White Blood Count 8.4 X10*3/uL (4.8-10.8)
[2024-12-08 18:21] LABS: Thyroid Stimulating Hormone 1.65 uIU/mL (0.32-4.0)
[2024-12-08 20:50] LABS: Bacterial Vaginosis PCR POSITIVE (Negative); Candida Group PCR NOT DETECTED (Not Detect); Candida glab krusei PCR NOT DETECTED (Not Detect); Trichomonas vaginalis PCR NOT DETECTED (Not Detect)
[2024-12-08 22:38] LABS: CT PCR NOT DETECTED (Not Detect.); NG PCR NOT DETECTED (Not Detect.)
[2024-12-09 08:20] LABS: HBc Num1 0.14 S/CO (0.00-0.79); HIV Num 1 0.06 S/CO (0.00-0.99); ~HepC Num1 0.10 S/CO (0.00-0.79); ~Hepatitis C Antibody Nonreactive (Nonreactive)
[2024-12-09 08:42] LABS: Syphilis Screen Nonreactive (Nonreactive)
== END 2024-12-08 15:08 | disposition home or self-care (01) ==
LOC: HO.LAB 15:07
PROVIDERS: PCP Internal Medicine; Visit Provider Advanced Practice Midwife
DX: Z01.419 Encounter for gynecological examination (general) (routine) without abnormal findings (principal); N92.1 Excessive and frequent menstruation with irregular cycle; Z20.2 Contact with and (suspected) exposure to infections with a predominantly sexual mode of transmission; R93.89 Abnormal findings on diagnostic imaging of other specified body structures; N93.9 Abnormal uterine and vaginal bleeding, unspecified
CPT/HCPCS: 36415; 81515; 84443; 85027; 86704; 86780; 86803; 87389; 87491; 87591; 87626; 88175

== ENCOUNTER 2025-03-25 13:24 | Outpatient (REF) | payer OTHER, SELFPAY ==
--- NOTE | ~2025-03-25 | US_ITS ---
CLINICAL HISTORY: N93.9 - Abnormal uterine and vaginal bleeding, unspecified US pelvis transvaginal with Doppler Comparison: US/IL/SR - US PELVIS TRANSABDOMINAL AND TRANSVAGINAL - 09/13/24 16:15 EDT Findings: Transvaginal scanning performed with Doppler. Anteverted uterus is 7 x 4.7 x 4.1 cm length. The cervix demonstrates a couple of subcentimeter anechoic foci with posterior enhancement; nabothian cysts. Normal myometrium. No endometrial lesion, 13 mm thickness. Right ovary 2.2 x 1.3 x 1.6 cm. Left ovary 2.4 x 2.2 x 2.2 cm. Moreover of the left ovary demonstrates multiple subcentimeter anechoic foci with posterior acoustic enhancement; simple cysts. Normal color Doppler with arterial/venous spectral tracing of both ovaries. No free fluid. IMPRESSION: 1. Normal pelvic ultrasound with Doppler. No evidence of ovarian torsion. This document has been electronically signed by: Martín Del Rio MD on 03/27/2025 18:28:43
--- OUTSIDE RECORDS SUMMARY | 2025-03-25 16:03 | XMS_ITS | Clinical Summary ---
Author Organization [employer] Address [address] [place] [address] [address] [place] [address] Care Team Providers Care Rubber Goods Supervisor Name Role Phone Unavailable Primary Care Provider [...] Care Team (Late st Contact Info) Description 04/13/2025 9:30 AM EST Office Visit [facility] [address] [place] [address] Awilda Valle [address] [place] [address] Health Maintenance Due Date Last Done Comments Depression Screening 1981 HIV Screening 1981 SDOH Screening 1981 Disability Screening 1981 Alcohol/Substance Use Screening 1993 Family Planning (PISQ) 1996 HPV Vaccines (1 - 3-dose series) 1996 Hepatitis C Screening 1999 DTaP/Tdap/Td Vaccines (1 - Tdap) 2000 Hepatitis B Vaccines (1 of 3 - 19+ 3-dose series) 2000 Pap Smear 2002 Cervical Cancer Screening 2011 HPV/Cotest 2011 Mammogram 2021 Dental X-Ray: Full Mouth 02/19/2022 02/18/2019, 02/07 Dental Oral Exam 04/02/2024 10/01/2023, , 02/18/2019, Additional history exists Dental X-Ray: Bitewings 10/01/2024 10/01/19 24, 01/13/2023, 02/21/2021, Additional history exists Dental Prophylaxis 12/31/2024 07/02/2024, 0 10/01/2023, 01/13/2023, Additional history exists COVID-19 Vaccine ( - season) 2025 Influenza Vaccine (#1) 2025 Tobacco Screening 07/02/2025 07/02/2024 Zoster Vaccines [...] Most Recently Relevant to Health Maintenance Insurance [facility] - HSN FULL (MEDICAID)
--- OUTSIDE RECORDS SUMMARY | 2025-03-25 16:03 | XMS_ITS | Encounter Summary ---
Author Organization [employer] Address [address] [facility] [address] [place] [address] Care Team Providers Care Curing Oven Tender Name Role Phone Unavailable Primary Care Provider Unavailabl e Encounter Details Date Type Department Care Team (Latest Contact Info) Description 02/18/2019 Abstract [facility] CONVERSIONS Dental, Provider, DDS Social History [...] Description 04/13/2025 9:30 AM EST Office Visit [facility] [address] [place] [address] LeonardMauroAwilda [address] [place] [address] documented as of this encounter Visit Diagnoses Not on filedocumented in this encounter
--- OUTSIDE RECORDS SUMMARY | 2025-03-25 16:03 | XMS_ITS | Encounter Summary ---
Author Organization [employer] Address [address] [facility] [address] [place] [address] Care Team Providers Care Grainer Machine Name Role Phone Unavailable Primary Care Provider Unavailabl e Encounter Details Date Type Department Care Team (Latest Contact Info) Description 02/21/2021 Abstract [facility] CONVERSIONS Dental, Provider, DDS Social History [...] Description 04/13/2025 9:30 AM EST Office Visit [facility] [address] [place] [address] Mauro Vallearis [address] [place] [address] documented as of this encounter Visit Diagnoses Not on filedocumented in this encounter
== END 2025-03-25 13:25 | disposition home or self-care (01) ==
LOC: HO.US 13:24
PROVIDERS: PCP Internal Medicine; Visit Provider Advanced Practice Midwife
DX: N93.9 Abnormal uterine and vaginal bleeding, unspecified (principal); R93.89 Abnormal findings on diagnostic imaging of other specified body structures
CPT/HCPCS: 76830; 76856

== ENCOUNTER → 2025-03-25 13:25 | Outpatient (BNV) | payer OTHER, SELFPAY | PROVIDERS: PCP Internal Medicine; Visit Provider Radiology Diagnostic Radiology | DX: N93.9 Abnormal uterine and vaginal bleeding, unspecified (principal); N83.292 Other ovarian cyst, left side | CPT/HCPCS: 76830; 76856 ==

== ENCOUNTER 2025-03-29 08:48 | Outpatient (AMB) | payer OTHER, SELFPAY ==
[2025-03-29 09:03] VITALS: BP 112/82; PULSE 66; TEMP 36.3; O2SAT 99; BMI 32.2
--- NOTE | 2025-03-29 09:03 | MHC.PC.OV ---
Vital Signs 03/29/25 09:03 Height 5 ft 4 in Weight 187 lb 8 oz BMI 32.2 BP 112/82 Blood Pressure Location Lt brachial Position Sitting Pulse 66 Pulse Source Pulse Oximeter Temp 97.3 F Temp Source Temporal Artery Scan Pulse Oximetry (%) 99 Oxygen Delivery Method Room Air Intake Visit Reasons: ANNUAL Microphone Boom Operator Required: No Accompanied by: Self / Same As Patient Allergies No Known Allergies Allergy (Verified 03/29/25 09:19) Medication List - Last Reconciled 03/29/25 by Evy Petty MD cyclobenzaprine 5 mg PO BEDTIME 90 days ibuprofen 800 mg PO TID PRN lidocaine 5% 3 patches topical DAILY naproxen 500 mg PO DAILY PRN 90 days Tobacco use date assessed: 03/29/25 Dental Screening Dental Screen Date: 03/29/25 Did you have a dental visit in the last 12 months?: Yes Did you have a dental problem in the last 6 months where you did not have access to dental care?: No Was dental information given to patient?: Patient has dentist HPI HPI Comments History of Present Illness Details The patient is a 44-year-old female presenting for a physical exam and management of chronic conditions. The patient has a history of uterine thickening, monitored through ultrasounds, with a negative Pap smear this year. She experiences anxiety due to her son's nonverbal autism and aggression, feeling overwhelmed and awaiting therapy. Chronic back pain radiates to her legs, with ineffective cortisone treatment, considering TENS unit use. Menopausal symptoms include emotional lability. Family history includes hypertension and thyroid disease; she does not smoke and drinks alcohol occasionally. [facility] Medical History Thickened endometrium Abnormal uterine bleeding (AUB) Hx LEEP (loop electrosurgical excision procedure), cervix, (~06/2012) Migraine Neuropathic pain of left forearm Family history of thyroid disease in maternal grandfather Arm pain, left Surgical History History of salpingectomy (~2013) History of 2 sections Family History Father Hypertension Mother Thyroid disease Maternal Grandmother Hypertension Diabetes mellitus Maternal Aunt Hypertension Family/Other Mental health disorder Social History Housing: House Alcohol intake: current Alcohol intake frequency: holidays/special occasions only Alcohol type: beer and wine Patient Tobacco Use Status: Never used Tobacco e-Cigarette/Vaping Use: Never Used Second Hand Smoke Exposure: No service: No Current occupational status: employed Current occupation: [employer] Current occupational exposures/hazards: No Cognitive needs: No Hearing needs: No Vision needs: Yes Female Reproductive History Menstrual Age of Menarche: 12 Questionnaire PHQ-9 Over the last 2 weeks, how often have you been bothered by any of the following problems? 1. Little interest or pleasure in doing things: not at all 2. Feeling down, depressed, or hopeless: not at all 3. Trouble falling or staying asleep, or sleeping too much: not at all 4. Feeling tired or having little energy: not at all 5. Poor appetite or overeating: not at all 6. Feeling bad about yourself - or that you are a failure or have let yourself or your family down: not at all 7. Trouble concentrating on things, such as reading the newspaper or watching television: not at all 8. Moving or speaking so slowly that other people could have noticed. Or the opposite - being so fidgety or restless that you have been moving around a lot more than usual: not at all 9. Thoughts that you would be better off or of hurting yourself in some way: not at all Total score: 0 Depression Screening Interpretation: Negative Depression Screening Done: Yes 08800 - PHQ-9 Billing: Yes Source: Developed by Drs. Miguel Santiago, Florence Rodriguez, Praveen Faust and colleagues, with an educational ghislaine from [employer]. Thrive Questionnaire Date Thrive assessed: 03/29/25 I am a: Patient What is your living situation today?: I choose not to answer this question Within the past 12 months, did the food you bought not last and you didn't have the money to get more?: I choose not to answer this question Within the past 12 months, did you worry whether your food would run out before you got money to buy more?: I choose not to answer this question Do you have trouble paying for medicines?: I choose not to answer this question Do you have trouble getting transportation to medical appointments?: I choose not to answer this question Do you have trouble paying your heating and electricity bill?: I choose not to answer this question Do you have trouble taking care of your child, family member or friend?: I choose not to answer this question Do you have trouble with day-to-day activities such as bathing, preparing meals, shopping, managing finances, etc.?: I choose not to answer this question Are you currently unemployed and looking for a job?: I choose not to answer this question Are you interested in more education?: I choose not to answer this question Please select the resources that you would like help with: None Currently or been in a relationship where the following occur: No concerns reported THRIVE Score: 0 AUDIT C Alcohol Use Questionnaire (AUDIT-C) 1. How often do you have a drink containing alcohol?: Never 3. How often do you have six or more drinks on one occasion?: Never Total Score: 0 Score Reviewed/Action Taken: No BREE-7 AMB Questionnaire BREE-7 Date BREE - 7 assessed: 03/29/25 Feeling nervous, anxious, or on edge: 0 = Not at all Not being able to stop or control worryin = Not at all Worrying too much about different things: 0 = Not at all Trouble relaxin = Not at all Being so restless that it is hard to sit still: 0 = Not at all Becoming easily annoyed or irritable: 0 = Not at all Feeling afraid as if something awful might happen: 0 = Not at all Total BREE-7 score (0-4 normal; 5-9 mild; 10-14 moderate; 15-21 severe): 0 Source: Developed by Drs. Miguel Santiago, Florence Rodriguez, Praveen Faust and colleagues, with an educational ghislaine from [employer]. BREE-7 Assessment Billing BREE-7 Assessment Tool: BREE-7 Assessment 61012 Review of Systems Const All systems reviewed & are unremarkable except as noted in HPI and below Card Denies chest pain at rest, Denies chest pain with activity, Denies edema, Denies irregular heart rhythm, Denies claudication, Denies dyspnea, Denies dyspnea on exertion, Denies orthopnea, Denies paroxysmal nocturnal dyspnea and Denies slow heart rate Resp Denies cough, Denies dyspnea and Denies dyspnea on exertion GI Denies abdominal pain, Denies change in bowel habits, Denies excessive flatus, Denies nausea and Denies vomiting Physical exam (Primary Care) Vital Signs: Last Vital Signs Temp 97.3 F 03/29/25 09:03 Pulse 66 03/29/25 09:03 BP 112/82 03/29/25 09:03 Pulse Ox 99 03/29/25 09:03 Oxygen Delivery Method Room Air 03/29/25 09:03 BMI result Body Mass Index 32.2 BMI Assessment/Plan discussion: High BMI High, discussed plan: lifestyle, weight reduction, dietary and physical activity Tobacco/Smoking Status: Tobacco use Status Tobacco use date assessed 03/29/25 03/29/25 09:07 Patient Tobacco Use Status Never used Tobacco 03/29/25 09:07 Tobacco use type 09/15/23 09:48 e-Cigarette/Vaping Use Never Used 03/29/25 09:07 PHQ-9: PHQ-9 Score PHQ-9: Total score 0 03/29/25 09:24 Depression Screening Interpretation: Negative Thrive Assessment: Date of Thrive Assessment Date Thrive assessed 03/29/25 03/29/25 09:07 Currently or been in a relationship where the following occur: No concerns reported HENMT Head: Yes normal to inspection, Yes normocephalic and Yes atraumatic Ears: external ears normal Eyes General: appearance normal, both eyes and all related structures Eyelids: Yes eyelids normal Conjunctivae: conjunctivae normal Neck Neck: Yes normal visual inspection and Yes supple Resp Effort & Inspection: normal respiratory effort Auscultation: clear to auscultation bilaterally Cardio Jugular venous distension: no JVD Rate: regular rate Rhythm: regular rhythm Heart sounds: S1 normal heart sound present and S2 normal heart sound present GI Inspection: Yes normal to inspection Palpation (GI): Soft to palpation and nontender Auscultation: normal bowel sounds Skin General skin exam: no rashes or lesions noted Neuro General: no focal motor deficits Extrem General: Yes full ROM Psych Appearance: grossly normal Immunizations Boostrix Tdap 2.5 Lf unit-8 mcg-5 Lf/0.5 mL intramuscular syringe Performing Provider: Evy Petty MD Performing Location: [facility] Administered by: LINSEY Valencia on 03/29/25 09:39 Dose Route Admin Location Dispensed Lot Number Expiration Date NDC Engineering Intern 0.5 mL IM Right Deltoid 0.5 mL [id number] 04/01/27 [id number] [employer] Total Dispensed Waste 0.5 mL 0 % VIS Given Date VIS Provided VIS Publication Date 03/29/25 Single Vaccine 21 Eligibility Eligibility Date Funding Source Not [facility] Eligible 03/29/25 Private Coding Level of Care Code Est Pt Level 3 (74343) Est Pt Prev Care 40-64y(26296) Diagnoses Physical exam Z00.00 Spondylosis of lumbar region without myelopathy or radiculopathy M47.816 Additional Codes BREE-7 Assessment Billing - BREE-7 Assessment Tool: BREE-7 Assessment 01098 ([id number]) PHQ-9 - 43028 - PHQ-9 Billing: Yes ([id number]) Time Spent (min) 33 Assessment & Plan Assessment & Plan (1) Physical exam: Code(s): Z00.00 - Encounter for general adult medical examination without abnormal findings Category: Medical (2) Spondylosis of lumbar region without myelopathy or radiculopathy: Code(s): M47.816 - Spondylosis without myelopathy or radiculopathy, lumbar region Category: Medical Plan Plan 1. Encounter for general adult medical examination without abnormal findings Z00.00 The patient received a Tdap vaccination during the visit. 2. Dorsalgia, unspecified M54.9 The patient has chronic back pain radiating to her legs, with previous cortisone injections ineffective, and is considering a TENS unit for pain management. Orders: Orders Lipid Panel Today Z00.00 - Encounter for general adult medical examination without abnormal findings Comprehensive [place]. Panel Fast Today Z00.00 - Encounter for general adult medical examination without abnormal findings TDaP Immunization Today Z23 - Encounter for immunization Referrals Pain Management Referral M47.816 - Spondylosis without myelopathy or radiculopathy, lumbar region Medications: Refilled ibuprofen 800 mg PO TID PRN 90 tabs 1RF for pain M79.2 - Neuralgia and neuritis, unspecified lidocaine 5% leave on most painful area for up to 12 hrs 3 patches topical DAILY 30 ea 3RF M54.51 - Vertebrogenic low back pain cyclobenzaprine 5 mg PO BEDTIME 90 tabs 0RF 90 days
--- OUTSIDE RECORDS SUMMARY | 2025-03-29 09:13 | XMS_ITS | Encounter Summary ---
Author Organization [employer] Address [address] [facility] [address] [place] [address] Care Team Providers Care Endocrinology Nurse Name Role Phone Unavailable Primary Care Provider Unavailabl e Encounter Details Date Type Department Care Team (Latest Contact Info) Description 02/21/2021 Abstract [facility] CONVERSIONS Dental, Provider, DDS Social [...] Description 04/13/2025 9:30 AM EST Office Visit [facility] ADULT DENTAL [address] [place] [address] Mauro Vallearis [address] [place] [address] documented as of this encounter Visit Diagnoses Not on filedocumented in this encounter
--- OUTSIDE RECORDS SUMMARY | 2025-03-29 09:13 | XMS_ITS | Encounter Summary ---
Author Organization [employer] Address [address] [facility] [address] [place] [address] Care Team Providers Care Beam Press Operator Name Role Phone Unavailable Primary Care Provider Unavailabl e Encounter Details Date Type Department Care Team (Latest Contact Info) Description 02/18/2019 Abstract [facility] CONVERSIONS Dental, Provider, DDS Social History [...] Description 04/13/2025 9:30 AM EST Office Visit [facility] ADULT DENTAL [address] [place] [address] LeonardMauroAwilda [address] [place] [address] documented as of this encounter Visit Diagnoses Not on filedocumented in this encounter
--- OUTSIDE RECORDS SUMMARY | 2025-03-29 09:13 | XMS_ITS | Clinical Summary ---
Author Organization [employer] Address [address] [place] [address] 7[address] [place] [address] Care Team Providers Care Skirt Clipper Name Role Phone Unavailable Primary Care Provider [...] Description 04/13/2025 9:30 AM EST Office Visit [facility] ADULT DENTAL [address] [place] [address] Awilda Valle [address] [place] [address] Health Maintenance Due Date Last Done Comments [...] Most Recently Relevant to Health Maintenance Insurance [facility] DENTAL - HSN FULL (MEDICAID)
== END 2025-03-29 09:43 | disposition home or self-care (01) ==
LOC: HO.HMCH 08:48
PROVIDERS: PCP Internal Medicine; Visit Provider Internal Medicine
DX: Z00.00 Encounter for general adult medical examination without abnormal findings (principal); M47.816 Spondylosis without myelopathy or radiculopathy, lumbar region; Z23 Encounter for immunization

== ENCOUNTER → 2025-03-29 08:48 | Outpatient (BNVA) | payer OTHER, SELFPAY | PROVIDERS: PCP Internal Medicine; Visit Provider Internal Medicine | DX: Z00.00 Encounter for general adult medical examination without abnormal findings (principal); M47.816 Spondylosis without myelopathy or radiculopathy, lumbar region; M54.51 Vertebrogenic low back pain; M79.2 Neuralgia and neuritis, unspecified; Z23 Encounter for immunization | CPT/HCPCS: 90471; 90715; 96127 ==

== ENCOUNTER 2025-04-07 14:52 | Outpatient (AMB) | payer OTHER, SELFPAY ==
--- NOTE | 2025-04-07 10:30 | A.OFFVIS_ITS ---
Intake Visit Reasons: TV ultrasound results Body Mechanic Apprentice: Body Mechanic Apprentice Present Allergies No Known Allergies Allergy (Verified 04/12/25 10:48) Is last menstrual period known: Yes HPI Comments Details: Patient presents to discuss: Ultrasound follow up history menstrual. History of tubal ligation. Reports heavy menstrual bleeding 3/5 to 7 days since her tubal ligation. [facility] Medical History Thickened endometrium Abnormal uterine bleeding (AUB) Hx LEEP (loop electrosurgical excision procedure), cervix, (~06/2012) Migraine Neuropathic pain of left forearm Family history of thyroid disease in maternal grandfather Arm pain, left Surgical History History of salpingectomy (~2013) History of 2 sections Family History Father Hypertension Mother Thyroid disease Maternal Grandmother Hypertension Diabetes mellitus Maternal Aunt Hypertension Family/Other Mental health disorder Social History Housing: House Alcohol intake: current Alcohol intake frequency: holidays/special occasions only Alcohol type: beer and wine Patient Tobacco Use Status: Never used Tobacco e-Cigarette/Vaping Use: Never Used Second Hand Smoke Exposure: No service: No Current occupational status: employed Current occupation: [employer] Current occupational exposures/hazards: No Cognitive needs: No Hearing needs: No Vision needs: Yes Female Reproductive History Menstrual Age of Menarche: 12 Review of Systems Const All systems reviewed & are unremarkable except as noted in HPI and below Endo Reports no additional complaints Physical Exam Const General: cooperative, healthy appearing and no acute distress Psych Appearance: well kempt Attitude: cooperative Thought process: Normal thought process present Results Reviewed Results Reviewed: [address] [address] Ultrasound Report Signed Patient: Kayy Colunga MR#: [id number] : 1980 Acct:[id number] Age/Sex: 44 / F ADM Date: 03/25/25 Loc: HO.US Attending Dr: Lyric Connolly CNM Ordering Physician: Lyric Connolly CNM Date of Service: 03/25/25 Procedure(s): US pelvic and transvaginal Accession Number(s): [id number] cc: Lyric Connolly CNM; Evy Riggs MD~ Reason for Exam: N93.9 - Abnormal uterine and vaginal bleeding, unspecified CLINICAL HISTORY: N93.9 - Abnormal uterine and vaginal bleeding, unspecified US pelvis transvaginal with Doppler Comparison: US/CT/SR - US PELVIS TRANSABDOMINAL AND TRANSVAGINAL - 09/13/24 16:15 EDT Findings: Transvaginal scanning performed with Doppler. Anteverted uterus is 7 x 4.7 x 4.1 cm length. The cervix demonstrates a couple of subcentimeter anechoic foci with posterior enhancement; nabothian cysts. Normal myometrium. No endometrial lesion, 13 mm thickness. Right ovary 2.2 x 1.3 x 1.6 cm. Left ovary 2.4 x 2.2 x 2.2 cm. Moreover of the left ovary demonstrates multiple subcentimeter anechoic foci with posterior acoustic enhancement; simple cysts. Normal color Doppler with arterial/venous spectral tracing of both ovaries. No free fluid. IMPRESSION: 1. Normal pelvic ultrasound with Doppler. No evidence of ovarian torsion. This document has been electronically signed by: Martín Del Rio MD on 03/27/2025 18:28:43 Dictated By: Martín Del Rio MD Signed By: <Electronically signed by Martín Del Rio MD in OV> 03/27/251828 DD/ 27 TD/TT: 03/27/251827 Plisse Machine Operator Helper: Assessment & Plan Assessment & Plan (1) Abnormal uterine bleeding (AUB): Code(s): N93.9 - Abnormal uterine and vaginal bleeding, unspecified Category: Medical Plan Discussed: Ultrasound findings- IMPRESSION: 1. Normal pelvic ultrasound with Doppler. No evidence of ovarian torsion. Recommend endometrial biopsy to rule out any uterine endometrial abnormalities including atypia, hyperplasia, precancer, or cancer. Anticipatory guidance reviewed for procedure planning to include having something to eat and drink, taking 600 mg of ibuprofen 1 hour before her procedure is scheduled. The patient expressed understanding and agreement with the plan of care. All of her questions and concerns were addressed to the best of my ability. This note is constructed using voice recognition software. While every effort has been made to ensure accuracy, water fitness instructor errors may have been included. Coding Level of Care Code Est Pt Level 3 (17308) Diagnoses Abnormal uterine bleeding (AUB) N93.9
--- OUTSIDE RECORDS SUMMARY | 2025-04-07 12:47 | XMS_ITS | Encounter Summary ---
Author Organization [employer] Address [address] [facility] [address] [place] [address] Care Team Providers Care Hemstitcher Name Role Phone Unavailable Primary Care Provider Unavailabl e Encounter Details Date Type Department Care Team (Latest Contact Info) Description 02/21/2021 Abstract [facility] CONVERSIONS Dental, Provider, DDS Social History [...] Description 04/13/2025 9:30 AM EST Office Visit [facility] ADULT DENTAL [address] [place] [address] Mauro Vallearis [address] [place] [address] documented as of this encounter Visit Diagnoses Not on filedocumented in this encounter
--- OUTSIDE RECORDS SUMMARY | 2025-04-07 12:47 | XMS_ITS | Encounter Summary ---
Author Organization [employer] Address [address] [facility] [address] [place] [address] Care Team Providers Care Leaf Sticker Name Role Phone Unavailable Primary Care Provider Unavailabl e Encounter Details Date Type Department Care Team (Latest Contact Info) Description 02/18/2019 Abstract [facility] CONVERSIONS Dental, Provider, DDS Social [...] Description 04/13/2025 9:30 AM EST Office Visit [facility] ADULT DENTAL [address] [place] [address] LeonardMauroAwilda [address] [place] [address] documented as of this encounter Visit Diagnoses Not on filedocumented in this encounter
--- OUTSIDE RECORDS SUMMARY | 2025-04-07 12:47 | XMS_ITS | Clinical Summary ---
Author Organization [employer] Address [address] [place] [address] [address] [place] [address] Care Team Providers Care Conduit Cleaner Name Role Phone Unavailable Primary Care Provider [...] Description 04/13/2025 9:30 AM EST Office Visit [facility] ADULT DENTAL [address] [place] [address] Awilda Valle [address] [place] [address] Health Maintenance Due Date Last Done Comments [...] Most Recently Relevant to Health Maintenance Insurance [facility] D[facility] - HSN FULL (MEDICAID)
== END 2025-04-07 15:11 | disposition home or self-care (01) ==
PROVIDERS: PCP Internal Medicine; Visit Provider Advanced Practice Midwife
DX: N93.9 Abnormal uterine and vaginal bleeding, unspecified (principal)
CPT/HCPCS: 99213

== ENCOUNTER 2025-04-12 10:42 | Outpatient (REF) | payer OTHER, SELFPAY | END 2025-04-12 10:43 | disposition home or self-care (01) | LOC: HO.LNP 10:42 | PROVIDERS: PCP Internal Medicine; Visit Provider Advanced Practice Midwife | DX: N93.9 Abnormal uterine and vaginal bleeding, unspecified (principal) | CPT/HCPCS: 58100; 81025; 88305 ==

== ENCOUNTER 2025-04-12 10:42 | Outpatient (AMB) | payer OTHER, SELFPAY ==
--- NOTE | 2025-04-12 10:48 | MHC.OFFVIS ---
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 She is not interested in a Mirena IUD due to her past experience and would rather deal with her bleeding for now. [facility] Medical History Thickened endometrium Abnormal uterine bleeding (AUB) Hx LEEP (loop electrosurgical excision procedure), cervix, (~06/2012) Migraine Neuropathic pain of left forearm Family history of thyroid disease in maternal grandfather Arm pain, left Surgical History History of salpingectomy (~2013) History of 2 sections Family History Father Hypertension Mother Thyroid disease Maternal Grandmother Hypertension Diabetes mellitus Maternal Aunt Hypertension Family/Other Mental health disorder Social History Housing: House Alcohol intake: current Alcohol intake frequency: holidays/special occasions only Alcohol type: beer and wine Patient Tobacco Use Status: Never used Tobacco e-Cigarette/Vaping Use: Never Used Second Hand Smoke Exposure: No service: No Current occupational status: employed Current occupation: [employer] Current occupational exposures/hazards: No Cognitive needs: No Hearing needs: No Vision needs: Yes Female Reproductive History Menstrual Age of Menarche: 12 Date of last menstrual period: 04/11/25 Review of Systems Const All systems reviewed & are unremarkable except as noted in HPI and below Physical Exam Const General: cooperative, healthy appearing and no acute distress Orientation/consciousness: patient oriented x3 GI Inspection: Yes normal to inspection Palpation (GI): Soft to palpation and Other GI palpation findings present (Nontender) Rectal Exam - Female: visual inspection normal General: Yes bladder normal to palpation External Female Exam: normal appearance of the urethra Speculum Exam - Vagina: normal appearance of the vagina, normal palpation, normal vaginal discharge and vaginal bleeding Speculum Exam - Cervix: normal appearance of the cervix and normal palpation Bimanual exam- vagina & uterus: normal bimanual exam, normal palpation, uterine size normal, bladder normal to palpation, normal palpation, uterine shape normal and non-tender Bimanual Exam- Adnexa, other: normal adnexae OB/external & speculum: vaginal bleeding Neuro General: patient oriented x3 Office Procedures Endometrial Biopsy Details: The patient is here today for an endometrial biopsy due to AUB to rule out any pathology including atypical, hyperplasia or cancer cells of the uterus. She was counseled regarding anticipatory guidance for the procedure including the risks for pain, infection, bleeding, perforation, potential injury to the tissues may include the cervix, uterus, tubes, bladder and bowels. These injuries may include further treatment and evaluation including surgery, blood transfusions, antibiotics, hospitalizations and anesthesia. Permanent injury and scarring can occur. She was consented for the procedure, and the consent forms were signed. She is agreeable to have the procedure today. All questions were answered. Endometrial Biopsy Procedure: The patient was placed in the dorsal lithotomy position and a sterile speculum inserted. Using aseptic technique for the procedure. The cervix was cleansed with Betadine x 3 swabs. A single toothed tenaculum was placed on the cervix for stabilization and the uterus was sounded to 7 cm with a 4mm pipelle, and tissue sample obtained. Minimal bleeding was observed. The tissue sample was placed in formalin in a patient labeled container by staff assisting and sent to the pathology department for processing and interpretation. The patient tolerate the procedure well and was in good condition when leaving the department. Endometrial Biopsy Post Procedure Care: Nothing in the vagina including: tampons, douching or intimacy until all the bleeding has subsided. There may be some post procedure bleeding for several days, this bleeding is usually light and may turn to a light brown or pink color. Mild cramps may occurs. Nothing in the vaginal including: tampons, douching, or intimacy until all the bleeding has subsided. You may take an over the counter mild analgesic such as Tylenol or Advil (if no allergies) per the manufactures recommendation on dosing, frequency, and follow the directions completely. Call the office if any: fever (over 100.4), flu like symptoms, abdominal pain (worse than cramping), foul smelling, infected appearing vaginal discharge, or heavy bleeding. If indicated: Use condoms to prevent and STI's, and only after the bleeding has stopped completely. Return to the office in 2 weeks for results and plan of care. This note is constructed using voice recognition software. While every effort has been made to ensure accuracy, boatbuilder supervisor errors may have been included. [id number] Biopsy Results AMB Test Urine AMB Test Urine Negative Last Edit by LINSEY Xavier on 04/12/25 10:57 Assessment & Plan Assessment & Plan (1) Abnormal uterine bleeding (AUB): Code(s): N93.9 - Abnormal uterine and vaginal bleeding, unspecified Category: Medical Plan Endometrial biopsy completed. Await results for final plan of care. Discuss options for cycle control and treatment for AUB. At this time does not want a Mirena IUD, prefers to monitor symptoms. Advised other options available should she reconsider. Advised to call if there is any heavier prolonged bleeding patterns or closely spaced patterns under 24 days apart. Advised to hydrate well. The patient expressed understanding and agreement with the plan of care. All of her questions and concerns were addressed to the best of my ability. This note is constructed using voice recognition software. While every effort has been made to ensure accuracy, boatbuilder supervisor errors may have been included. Orders: Orders AMB HCG Urine Test Today N93.9 - Abnormal uterine and vaginal bleeding, unspecified Surgical Today N93.9 - Abnormal uterine and vaginal bleeding, unspecified Coding Level of Care Code Procedure Only Diagnoses Abnormal uterine bleeding (AUB) N93.9 CPT Codes Endometrial Biopsy - CPT: 51150-[id number] Biopsy ([id number])
[2025-04-12 10:53] VITALS: BP 110/74; BMI 32.1
--- OUTSIDE RECORDS SUMMARY | 2025-04-12 12:42 | XMS_ITS | Clinical Summary ---
Author Organization [employer] Address [address] [place] [address] [address] [place] [address] Care Team Providers Care Patient Relations Specialist Name Role Phone Unavailable Primary Care Provider [...] Description 04/13/2025 9:30 AM EST Office Visit [facility]ULT [facility] [address] [place] [address] Awilda Valle [address] [place] [address] Health Maintenance Due Date Last Done Comments [...] Most Recently Relevant to Health Maintenance Insurance [facility] D[facility] - HSN FULL (MEDICAID)
--- OUTSIDE RECORDS SUMMARY | 2025-04-12 12:42 | XMS_ITS | Encounter Summary ---
Author Organization [employer] Address [address] [facility] [address] [place] [address] Care Team Providers Care Group Work Program Director Name Role Phone Unavailable Primary Care Provider Unavailabl e Encounter Details Date Type Department Care Team (Latest Contact Info) Description 02/18/2019 Abstract [facility] CONVERSIONS Dental, Provider, DDS Social History [...] Description 04/13/2025 9:30 AM EST Office Visit [facility] ADULT DENTAL [address] [place] [address] LeonardMauroAwilda [address] [place] [address] documented as of this encounter Visit Diagnoses Not on filedocumented in this encounter
--- OUTSIDE RECORDS SUMMARY | 2025-04-12 12:43 | XMS_ITS | Encounter Summary ---
Author Organization [employer] Address [address] [facility] [address] [place] [address] Care Team Providers Care Cartoonist Special Effects Name Role Phone Unavailable Primary Care Provider Unavailabl e Encounter Details Date Type Department Care Team (Latest Contact Info) Description 02/21/[address] [facility] CONVERSIONS Dental, Provider, DDS Social History [...] 9:30 AM EST Office Visit [facility] ADULT DENTAL [address] [place] [address] Mauro Vallearis [address] [place] [address] documented as of this encounter Visit Diagnoses Not on filedocumented in this encounter
== END 2025-04-12 12:02 | disposition home or self-care (01) ==
LOC: HO.HWS 10:42
PROVIDERS: PCP Internal Medicine; Visit Provider Advanced Practice Midwife
DX: N93.9 Abnormal uterine and vaginal bleeding, unspecified (principal); Z32.02 Encounter for pregnancy test, result negative
CPT/HCPCS: 58100

== ENCOUNTER 2025-05-25 13:04 | Outpatient (AMB) | payer OTHER, SELFPAY ==
--- NOTE | 2025-05-25 13:15 | MHC.OFFVIS ---
Vital Signs 05/25/25 13:15 Height 5 ft 4 in Intake Visit Reasons: emb follow up Intake Note: review emb results Cocoa Powder Mixer Operator Required: No Information Interpreted: non-clinical & clinical Trimming Department Blocker: Trimming Department Blocker Present (Sabina) Accompanied by: Self / Same As Patient Allergies No Known Allergies Allergy (Verified 05/25/25 13:20) Medication List - Last Reconciled 05/25/25 by Gely Bishop LPN cyclobenzaprine 5 mg PO BEDTIME 90 days ibuprofen 800 mg PO TID PRN lidocaine 5% 3 patches topical DAILY naproxen 500 mg PO DAILY PRN 90 days Is last menstrual period known: Yes Last menstrual period: 05/13/25 Do you need a note to return to daycare/school/sports/work: No HPI Comments Details: Patient is here today for a follow up endometrial biopsy results, abnormal uterine bleeding. She is not ready to do any intervention for hormonal therapy for cycle control at this time she would prefer to monitor her cycles. [facility] Medical History Thickened endometrium Abnormal uterine bleeding (AUB) Hx LEEP (loop electrosurgical excision procedure), cervix, (~06/2012) Migraine Neuropathic pain of left forearm Family history of thyroid disease in maternal grandfather Arm pain, left Surgical History (Updated 05/25/25 @ 13:36 by Lyric Connolly CNM) History of salpingectomy (~2013) History of 2 sections Family History Father Hypertension Mother Thyroid disease Maternal Grandmother Hypertension Diabetes mellitus Maternal Aunt Hypertension Family/Other Mental health disorder Social History Housing: House Alcohol intake: current Alcohol intake frequency: holidays/special occasions only Alcohol type: beer and wine Patient Tobacco Use Status: Never used Tobacco e-Cigarette/Vaping Use: Never Used Second Hand Smoke Exposure: No service: No Current occupational status: employed Current occupation: [employer] Current occupational exposures/hazards: No Cognitive needs: No Hearing needs: No Vision needs: Yes Female Reproductive History Menstrual Age of Menarche: 12 Date of last menstrual period: 05/13/25 control method: permanent sterilization Review of Systems Const All systems reviewed & are unremarkable except as noted in HPI and below Endo Reports no additional complaints Physical Exam Const General: cooperative, healthy appearing and no acute distress Psych Appearance: well kempt Attitude: cooperative Thought process: Normal thought process present Results Reviewed Results Reviewed: Surgical Pathology [id number] Name: Kayy Colunga Age/Sex: 44/F Attending: Lyric Connolly CNM : 1980 Submitted by: Lyric Connolly CNM Copies to: Evy Riggs MD MR #: [id number] Status: DEP REF Collected: 04/12/25 Location: [facility] Received: 04/13/25 Diagnosis Endometrium, biopsy: Benign endometrium with extensive breakdown and hemorrhage (lytic endometrium) with late secretory and focal inactive glands; no atypia or carcinoma. Clinical History AUB Microscopic Description Microscopic sections reviewed. Material Received EMB Gross Description Received in formalin labeled ?endometrial biopsy? are fragments of red-pink soft tissue mixed with mucus and clotted blood forming an aggregate measuring 3.7 x 3.2 x 0.3 cm in greatest dimension which is wrapped in lens paper and entirely submitted for microscopic examination, multiple pieces in cassettes A1 and A2. ([facility]) Copies To Lyric Connolly CNM [facility] [address] [place] [address] Evy Riggs MD [facility] [address] [place] [address] NOTE: Unless otherwise stated, all tissue is formalin-fixed and paraffin-embedded. Some or all of the immunohistochemical tests reported herein may have been developed and their performance characteristics determined by [facility]. They have not been cleared or approved by the U.S. Food and Drug Administration (FDA). However, the FDA has determined that such clearance or approval is not necessary. This laboratory is certified under the Clinical Laboratory Improvement Amendments of 1988 (CLIA) as qualified to perform high complexity clinical laboratory testing. Patient: Kayy Colunga Age/Sex: 44/F MR#: [id number] Page 1 of 2 Surgical Pathology [id number] Electronically Signed By: Ai Fontaine 04/14/25 1156 Patient: Kayy Colunga Age/Sex: 44/F MR#: [id number] Page 2 of 2 Assessment & Plan Assessment & Plan (1) Abnormal uterine bleeding (AUB): Code(s): N93.9 - Abnormal uterine and vaginal bleeding, unspecified Category: Medical Plan Discussed: Ultrasound results- Diagnosis Endometrium, biopsy: Benign endometrium with extensive breakdown and hemorrhage (lytic endometrium) with late secretory and focal inactive glands; no atypia or carcinoma. Declines any hormonal therapy for treatment. Advised to observe for cycle pattern, report any heavy or prolonged episodes for sooner evaluation. Keep annual exam appointment for July 2025 and review with clinician at that time. The patient expressed understanding and agreement with the plan of care. All of her questions and concerns were addressed to the best of my ability. This note is constructed using voice recognition software. While every effort has been made to ensure accuracy, contractor field hauling errors may have been included. Coding Level of Care Code Est Pt Level 3 (73781) Diagnoses Abnormal uterine bleeding (AUB) N93.9
--- OUTSIDE RECORDS SUMMARY | 2025-05-25 17:09 | XMS_ITS | Encounter Summary ---
Author Organization [employer] Address [address] [place] [address] [address] [place] [address] Care Team Providers Care Repair Specialist Name Role Phone Unavailable Primary Care Provider Unavailabl e Encounter Details Date Type Department Care Team (Latest Contact Info) Description 02/21/2021 Abstract [facility] CONVERSIONS Dental, Provider, DDS Social History [...] Care Team (Late st Contact Info) Description 10/12/2025 1:30 PM EDT Office Visit [facility] ADULT DENTAL [address] [place] [address] LeonardMauroAwilda [address] [place] [address] documented as of this encounter Visit Diagnoses Not on filedocumented in this encounter
--- OUTSIDE RECORDS SUMMARY | 2025-05-25 17:09 | XMS_ITS | Clinical Summary ---
Author Organization [employer] Address [address] [place] [address] [address] [place] [address] Care Team Providers Care Manager Site Name Role Phone Unavailable Primary Care Provider [...] Active Problems Problem Noted Date Diagnosed Date Crowded teeth 04/13/2025 Dental calculus 04/13/2025 Excessive attrition of teeth 04/13/2025 Encounter for dental examination 10/01/2023 Normal oral exam 10/01/2023 Encounters Date Type Department Care Team Description 04/13/2025 9:30 AM EST Office Visit [facility] ADULT DENTAL [address] [place] [address] Awilda Valle Crowded teeth (Primary Dx); Dental calculus; Excessive attrition of teeth from Last 3 Months Social History [...] Sign Reading Time Taken Comments Blood Pressure 114/74 04/13/2025 9:37 AM EST Pulse 74 10/01/2023 3:03 PM EDT Temperature - - Respiratory Rate - - Oxygen Saturation - - Inhaled Oxygen Concentration - - Weight - - Height - - Body Mass Index - - Plan of Treatment Upcoming Encounters Date Type Department Care Team (Benito st Contact Info) Description 10/12/2025 1:30 PM EDT Office Visit [facility] ADULT DENTAL [address] [place] [address] Leonard, Awilda [address] [place] [address] Health Maintenance Due Date Last Done Comments Depression Screening 1981 HIV Screening 1981 SDOH Screening 1981 Disability Screening 1981 Alcohol/Substance Use Screening 1993 Family Planning (PISQ) 1996 HPV Vaccines (1 - 3-dose series) 1996 Hepatitis C Screening 1999 Hepatitis B Vaccines (1 of 3 - 19+ 3-dose series) 2000 Pap Smear 2002 Cervical Cancer Screening 2011 HPV/Cotest 2011 Mammogram 2021 COVID-19 Vaccine ( season) 2025 10/22/2020, 09/24/2020 Influenza Vaccine (#1) 2025 , 03/29/2019, 03/25/2018, Additional history exists Dental Oral Exam 10/12/2025 04/13/2025, , 02/21/2021, Additional history exists Dental Prophylaxis 10/12/2025 04/13/2025, 0 07/02/2024, 10/01/2023, Additional history exists Tobacco Screening 04/13/2026 04/13/2025 Dental X-Ray: Bitewings 04/14/2026 04/13/20 25, 10/01/2023, 01/13/2023, Additional history exists Dental X-Ray: Full Mouth 04/14/2028 025, 02/18/2019, 02/24/2013 Zoster Vaccines (1 of 2) 2031 DTaP/Tdap/Td Vaccines (2 - Td or Tdap) 03/29/2035 03/29/2025 RSV Patients and Patients Aged 60 years [...] Procedure Name Priority Date/Time Associated Diagnosis Comments PERIODIC ORAL EVALUATION - ESTABLISHED PATIENT Routine 04/13/2025 9:30 AM EST ORAL HYGIENE INSTRUCTIONS Routine 04/13/2025 9:30 AM EST Crowded teeth Dental calculus PROPHYLAXIS - ADULT Routine 04/13/2025 9 :30 AM EST Dental calculus INTRAORAL - COMPLETE SERIES OF RADIOGRAPHIC IMAGES Routine 04/13/2025 9:30 AM EST Crowded teeth Dental calculus from Last 3 Months Insurance [facility] DENTAL - HSN FULL (MEDICAID)
--- OUTSIDE RECORDS SUMMARY | 2025-05-25 17:09 | XMS_ITS | Encounter Summary ---
Author Organization [employer] Address [address] [place] [address] [address] [place] [address] Care Team Providers Care Help Desk Rep Name Role Phone Unavailable Primary Care Provider Unavailabl e Encounter Details Date Type Department Care Team (Latest Contact Info) Description 02/18/[address] [facility] CONVERSIONS Dental, Provider, DDS Social History [...] Description 10/12/2025 1:30 PM EDT Office Visit [facility] ADULT DENT[facility] [address] [place] [address] Leonard Awilda [address] [place] [address] documented as of this encounter Visit Diagnoses Not on filedocumented in this encounter
== END 2025-05-25 14:48 | disposition home or self-care (01) ==
LOC: HO.HWS 13:04
PROVIDERS: PCP Internal Medicine; Visit Provider Advanced Practice Midwife
DX: N93.9 Abnormal uterine and vaginal bleeding, unspecified (principal)
CPT/HCPCS: 99213